=== PATIENT | male | born 1960 | race Caucasian/White ===

== ENCOUNTER 2020-05-05 13:40 | Outpatient (REF) | payer BC, SELFPAY ==
[2020-05-05 16:41] LABS: MANUAL DIFF FLAG NO
[2020-05-05 16:44] LABS: Basophils Absolute Auto 0.1 X10*3/uL (0.0-0.2); Basophils Percent Auto 0.9 % (0-2); Eosinophils Absolute Auto 0.5 X10*3/uL (0.0-0.4); Eosinophils Percent Auto 5.2 % (0-4); Hemoglobin 14.4 g/dl (14.0-18.0); Imm Gran Abs Auto 0.04 X10*3/uL (0.00-0.03); Imm Gran Pct Auto 0.4 % (0.0-0.4); Lymphocytes Percent Auto 22.7 % (20-40); Mean Corpuscular HGB Conc 33.5 g/dl (31.0-36.0); Mean Corpuscular Hemoglobin 30.1 pg (27.0-33.0); Mean Corpuscular Volume 89.8 fL (80-98); Mean Platelet Volume 9.9 fL (9.4-12.4); Monocytes Percent Auto 10.7 % (2-11); Neutrophils Absolute Auto 5.4 X10*3/uL (2.0-8.3); Neutrophils Percent Auto 60.1 % (45-73); Platelet Count 414 X10*3/uL (160-400); Red Blood Count 4.79 X10*6/uL (4.60-5.80); Red Cell Distribution Width 12.4 % (11.0-16.0)
[2020-05-05 16:49] LABS: Prothrombin Time 12.1 SEC (10.8-13.0)
[2020-05-05 16:51] LABS: Partial Thromboplastin Time 35.7 SEC (24.1-38.0)
[2020-05-05 17:04] LABS: Alanine Aminotransferase 30 U/L (0-40); Albumin Level 4.8 g/dL (3.5-5.0); Alkaline Phosphatase 46 U/L (39-117); Anion Gap 15 (12-20); Aspartate Amino Transferase 43 U/L (5-37); Bilirubin Total 0.8 mg/dL (0.0-1.0); Blood Urea Nitrogen 13 mg/dL (9-16); Carbon Dioxide 30 mmol/L (22-29); Chloride 102 mmol/L (96-108); Estimated Glomerular Filt Rate > 60; Glucose Random 66 mg/dL (60-115); Potassium 3.5 mmol/L (3.3-5.1); Sodium 143 mmol/L (135-145); Total Protein 7.7 g/dL (6.5-8.0)
== END 2020-05-05 13:41 | disposition home or self-care (01) ==
LOC: HO.HMGCLDS 13:40
PROVIDERS: PCP Nurse Practitioner Family; Visit Provider Nurse Practitioner Family
DX: Z01.818 Encounter for other preprocedural examination (principal)
CPT/HCPCS: 36415; 80053; 85025; 85610; 85730

== ENCOUNTER 2020-06-22 13:18 | Outpatient (REF) | payer BC, SELFPAY ==
--- NOTE | ~2020-06-22 | XR_ITS ---
EXAMINATION: XR RIBS, RIGHT CLINICAL INFORMATION: Trauma, pain right chest. COMPARISON: Chest radiographs 06/19/2018, 06/26/2016 TECHNIQUE: Frontal view chest and 3 views right ribs are obtained for a total of 4 views. FINDINGS: There is a transverse fracture right distal 11th rib with mild inferior displacement distal fragment on one of the rib films. There is no bony destructive process. The remainder of the ribs appear intact. The lungs show no pneumothorax or pleural reaction or effusion. There is mild elevation left diaphragm with oval density left base, possibly subsegmental atelectasis. The heart is normal in size and the hilar and mediastinal contours are unremarkable. XR/XR ribs RT min 3V w CXR1V IMPRESSION: 1. Fracture distal right 11th rib. No pneumothorax or effusion. 2. Density left lung base with mild elevation diaphragm, likely subsegmental atelectasis. Recommend follow-up chest in 4-8 weeks to confirm resolution.
== END 2020-06-22 13:19 | disposition home or self-care (01) ==
LOC: HO.HMGCX 13:18
PROVIDERS: PCP Nurse Practitioner Family; Visit Provider Nurse Practitioner Family
DX: S29.9XXA Unspecified injury of thorax, initial encounter (principal); X58.XXXA Exposure to other specified factors, initial encounter; Y93.9 Activity, unspecified; Y92.9 Unspecified place or not applicable; Y99.9 Unspecified external cause status
CPT/HCPCS: 71101

== ENCOUNTER 2021-03-18 11:42 | Outpatient (REF) | payer BC, SELFPAY ==
[2021-03-18 14:45] LABS: Alanine Aminotransferase 16 U/L (0-40); Albumin Level 4.4 g/dL (3.5-5.0); Alkaline Phosphatase 42 U/L (39-117); Anion Gap 13 (12-20); Aspartate Amino Transferase 17 U/L (5-37); Bilirubin Total 0.7 mg/dL (0.0-1.0); Blood Urea Nitrogen 15 mg/dL (9-16); Carbon Dioxide 29 mmol/L (22-29); Chloride 104 mmol/L (96-108); Cholesterol 187 mg/dL; Estimated Glomerular Filt Rate > 60; Glucose Fasting 109 mg/dL (60-99); HDL Cholesterol 53 mg/dL; LDL Cholesterol Calculated 111 mg/dl; Potassium 3.9 mmol/L (3.3-5.1); Sodium 142 mmol/L (135-145); Total Protein 7.2 g/dL (6.5-8.0); Triglycerides 117 mg/dL
[2021-03-18 14:50] LABS: Calcium 10.3 mg/dL (8.4-10.2)
[2021-03-18 15:02] LABS: Prostate Specific Antigen Scr 0.82 ng/mL (<0.05-4.0); TSH reflex Free T4 1.18 uIU/mL (0.32-4.0)
== END 2021-03-18 11:43 | disposition home or self-care (01) ==
LOC: HO.HMGCLDS 11:42
PROVIDERS: PCP Nurse Practitioner Family; Visit Provider Nurse Practitioner Family
DX: Z12.5 Encounter for screening for malignant neoplasm of prostate (principal); I10 Essential (primary) hypertension
CPT/HCPCS: 36415; 80053; 80061; 84153; 84443

== ENCOUNTER 2021-03-21 10:27 | Outpatient (REF) | payer BC, SELFPAY ==
[2021-03-21 11:25] LABS: Appearance Urine CLEAR; Color Urine YELLOW; Glucose Urine UA NEG (NEG); Leukocyte Esterase Urine NEG (NEG); Nitrite Urine NEG (NEG); PH 6.5 (5.0-8.0); Urine Blood NEG (NEG); Urine Ketones NEG (NEG); Urine Protein NEG (NEG-TRACE)
== END 2021-03-21 10:28 | disposition home or self-care (01) ==
LOC: HO.HMGCLNP 10:27
PROVIDERS: Visit Provider Nurse Practitioner Family
DX: I10 Essential (primary) hypertension (principal)
CPT/HCPCS: 81003

== ENCOUNTER → 2021-06-27 11:19 | Outpatient (BNVA) | payer BC, SELFPAY | PROVIDERS: PCP Nurse Practitioner Family; Visit Provider Anesthesiology | DX: Z13.89 Encounter for screening for other disorder (principal) ==

== ENCOUNTER → 2021-08-10 13:33 | Outpatient (RCR) | payer BC, SELFPAY | END | disposition home or self-care (01) | LOC: HO.PTCHIC 01-23 08:58 | PROVIDERS: PCP Nurse Practitioner Family; Visit Provider Hospitalist | DX: M54.16 Radiculopathy, lumbar region (principal) ==

== ENCOUNTER 2021-08-17 10:23 | Outpatient (REF) | payer BC, SELFPAY ==
--- NOTE | ~2021-08-17 | XR_ITS ---
EXAMINATION: XR HIP, RIGHT CLINICAL INFORMATION: Pain COMPARISON: None TECHNIQUE: Two views of the right hip. FINDINGS: Bones and soft tissues are normal. No fracture. Alignment is anatomic. Hip joint space is maintained. XR/XR hip RT min 2V IMPRESSION: Normal right hip radiographs.
--- NOTE | ~2021-08-17 | XR_ITS ---
EXAMINATION: XR lumbar spine 2-3V CLINICAL INFORMATION: Reason for Exam M54.16 - Radiculopathy, lumbar region COMPARISON: None TECHNIQUE: 3 views of the lumbar spine XR/XR lumbar spine 2-3V FINDINGS/IMPRESSION: * Advanced degenerative disc disease at L4-L5 with loss of disc space height and facet arthropathy. * Loss of the usual lumbar lordosis which may be due to positioning or muscle spasm. * Vertebral body heights are maintained without evidence of acute fracture.
[2021-08-17 12:13] LABS: Anion Gap 13 (12-20); Carbon Dioxide 25 mmol/L (22-29); Chloride 106 mmol/L (96-108); Sodium 140 mmol/L (135-145)
[2021-08-18 13:14] LABS: Calcium (PTHI) 9.7 mg/dL (8.6-10.3); PTHI 37 pg/mL (16-77)
[2021-08-19 17:41] LABS: Calcium, Ionized 5.3 mg/dL (4.8-5.6)
== END 2021-08-17 10:24 | disposition home or self-care (01) ==
LOC: HO.HMGCX 10:23
PROVIDERS: PCP Nurse Practitioner Family; Visit Provider Nurse Practitioner Family
DX: M54.16 Radiculopathy, lumbar region (principal); M25.551 Pain in right hip; E83.52 Hypercalcemia
CPT/HCPCS: 36415; 72100; 73502; 80051; 82330; 83970

== ENCOUNTER 2021-09-12 09:46 | Outpatient (REF) | payer BC, SELFPAY ==
--- NOTE | ~2021-09-12 | MR_ITS ---
MR LUMBAR SPINE WITHOUT IV CONTRAST CLINICAL INFORMATION: Low back pain. COMPARISON: Lumbar spine radiographs 08/17/2021. TECHNIQUE: MRI of the lumbar spine was obtained using routine sequences without contrast. FINDINGS: 5 nonrib-bearing lumbar-type vertebral bodies. Vertebral body heights are maintained. Moderate to severe disc volume loss at L4-L5 and mild to moderate disc volume loss at L3-L4. Disc desiccation at L3-L4, L4-L5, and L5-S1. Modic type I and Modic type II endplate signal changes at L4-L5. No additional bone marrow edema. Conus terminates at the L1 level. No significant extraspinal soft tissue findings. L1-L2: Disc contour is normal. No central canal stenosis and no foraminal stenosis. L2-L3: Diffuse annular disc bulge and moderate bilateral facet arthropathy and ligamentum flavum thickening. No central canal stenosis. Mild foraminal encroachment bilaterally. L3-L4: Diffuse annular disc bulge and severe bilateral facet arthropathy and ligamentum flavum thickening. Epidural lipomatosis. Findings in concert result in moderate to severe thecal sac effacement and a left lateral disc protrusion and advanced facet arthropathy result in severe left foraminal stenosis with compression of the exiting left L3 nerve root. L4-L5: Diffuse annular disc bulges in part disc osteophyte with a superimposed right paracentral disc protrusion that compresses the traversing right L5 nerve root within the right subarticular zone and moderate bilateral facet arthropathy. Prominent epidural fat. Moderate thecal sac effacement. Disc osteophyte and facet arthropathy result in mild to moderate bilateral foraminal encroachment. L5-S1: Diffuse annular disc bulges in part disc osteophyte and severe bilateral facet arthropathy. Findings in concert result in severe right and moderate to severe left foraminal stenosis with compression of the exiting right greater than left L5 nerve roots. MR/MR lumbar spine wo con IMPRESSION: - At L3-L4, multifactorial degenerative changes and epidural lipomatosis result in moderate to severe thecal sac effacement and a left lateral disc protrusion and advanced facet arthropathy result in severe left foraminal stenosis with compression of the exiting left L3 nerve root. - At L4-L5, a right paracentral disc protrusion compresses the traversing right L5 nerve root within the right subarticular zone. The disc protrusion and epidural lipomatosis result in moderate thecal sac effacement at L4-L5. Mild to moderate bilateral foraminal stenosis at this level. - At L5-S1, multifactorial degenerative changes result in severe right and moderate to severe left foraminal stenosis with compression of the exiting right greater than left L5 nerve roots.
== END 2021-09-12 09:47 | disposition home or self-care (01) ==
LOC: HO.MRI 09:46
PROVIDERS: Visit Provider Nurse Practitioner Family
DX: M54.16 Radiculopathy, lumbar region (principal); M54.50 Low back pain, unspecified; R93.89 Abnormal findings on diagnostic imaging of other specified body structures
CPT/HCPCS: 72148

== ENCOUNTER 2022-02-03 17:15 | Outpatient (REF) | payer OTHER, SELFPAY ==
[2022-02-03 17:58] LABS: Influenza A PCR NEGATIVE (Negative); Influenza B PCR NEGATIVE (Negative); Resp Syncy Virus RNA Qual PCR NEGATIVE (Negative); SARS COV2 PCR INHOUSE NEGATIVE (Negative)
== END 2022-02-03 17:16 | disposition home or self-care (01) ==
LOC: HO.LNP 17:15
DX: Z20.822 Contact with and (suspected) exposure to COVID-19 (principal); R53.83 Other fatigue
CPT/HCPCS: 0241U

== ENCOUNTER 2022-02-24 10:28 | Outpatient (REF) | payer OTHER, SELFPAY ==
[2022-02-24 14:09] LABS: Binax Now Covid-19 Ag Negative (Negative)
[2022-02-24 14:10] LABS: Binax Internal Control QC Valid
== END 2022-02-24 10:29 | disposition home or self-care (01) ==
LOC: HO.HMGCLDS 10:28
PROVIDERS: PCP Nurse Practitioner Family
DX: Z20.822 Contact with and (suspected) exposure to COVID-19 (principal); R19.7 Diarrhea, unspecified
CPT/HCPCS: 87811

== ENCOUNTER 2022-03-23 11:57 | Outpatient (REF) | payer OTHER, SELFPAY ==
[2022-03-23 14:09] LABS: MANUAL DIFF FLAG NO
[2022-03-23 14:31] LABS: Basophils Absolute Auto 0.1 X10*3/uL (0.0-0.2); Basophils Percent Auto 0.6 % (0-2); Eosinophils Absolute Auto 0.3 X10*3/uL (0.0-0.4); Eosinophils Percent Auto 2.8 % (0-4); Hematocrit 41.8 % (42.0-52.0); Hemoglobin 13.8 g/dl (14.0-18.0); Imm Gran Abs Auto 0.07 X10*3/uL (0.00-0.03); Imm Gran Pct Auto 0.8 % (0.0-0.4); Lymphocytes Absolute Auto 2.5 X10*3/uL (1.2-4.9); Lymphocytes Percent Auto 27.1 % (20-40); Mean Corpuscular Hemoglobin 29.9 pg (27.0-33.0); Mean Corpuscular Volume 90.5 fL (80.0-98.0); Mean Platelet Volume 9.7 fL (9.4-12.4); Monocytes Absolute Auto 0.9 X10*3/uL (0.1-1.2); Monocytes Percent Auto 9.2 % (2-11); Neutrophils Absolute Auto 5.5 x10*3/uL (2.0-8.3); Neutrophils Percent Auto 59.5 % (45-73); Platelet Count 408 X10*3/uL (160-400); Red Blood Count 4.62 X10*6/uL (4.60-5.80); White Blood Count 9.3 X10*3/uL (4.8-10.8)
[2022-03-23 14:52] LABS: Alanine Aminotransferase 16 U/L (0-40); Albumin Level 4.4 g/dL (3.5-5.0); Alkaline Phosphatase 43 U/L (39-117); Anion Gap 14 (12-20); Aspartate Amino Transferase 17 U/L (5-37); Bilirubin Total 0.5 mg/dL (0.0-1.0); Blood Urea Nitrogen 9 mg/dL (9-16); Carbon Dioxide 24 mmol/L (22-29); Chloride 108 mmol/L (96-108); Cholesterol 146 mg/dL; Estimated Glomerular Filt Rate > 60; Glucose Fasting 99 mg/dL (60-99); HDL Cholesterol 50 mg/dL; LDL Cholesterol Calculated 71 mg/dl; Potassium 4.2 mmol/L (3.3-5.1); Prostate Specific Antigen Scr 0.94 ng/mL (<0.05-4.0); Sodium 142 mmol/L (135-145); TSH reflex Free T4 0.69 uIU/mL (0.32-4.0); Total Protein 6.6 g/dL (6.5-8.0); Triglycerides 128 mg/dL
== END 2022-03-23 11:58 | disposition home or self-care (01) ==
LOC: HO.HMGCLDS 11:57
PROVIDERS: PCP Nurse Practitioner Family; Visit Provider Nurse Practitioner Family
DX: Z00.00 Encounter for general adult medical examination without abnormal findings (principal); Z12.5 Encounter for screening for malignant neoplasm of prostate
CPT/HCPCS: 36415; 80053; 80061; 84153; 84443; 85025

== ENCOUNTER 2022-03-24 10:57 | Outpatient (REF) | payer OTHER, SELFPAY ==
--- NOTE | ~2022-03-24 | MR_ITS ---
EXAMINATION: MR LUMBAR SPINE WITHOUT AND WITH CONTRAST CLINICAL INFORMATION: Intervertebral disc disorder is with radiculopathy. COMPARISON: Lumbar spine MRI September 12, 2021. TECHNIQUE: MRI of the lumbar spine was obtained using routine sequences without and with intravenous contrast. A total of 8.5 mL Gadavist was intravenously administered. FINDINGS: The vertebral bodies maintain normal heights and alignment. There is advanced disc height loss at L4-L5 with mild endplate edema. The distal spinal cord appears normal. The conus medullaris terminates normally at the L1-L2 level. There is no abnormal enhancement along the cauda equina nerve roots. The extraspinal soft tissues are within normal limits. SPINAL LEVELS: L1-L2: No posterior disc abnormality. No spinal canal or neural foraminal stenosis. L2-L3: Mild disc bulging without narrowing the spinal canal or neural foramina. L3-L4: Disc bulging, facet arthropathy, ligamentum flavum infolding, and epidural lipomatosis resulting in progressive now severe spinal canal stenosis with compression of the thecal sac. Left foraminal protrusion results in compression of the exiting left L3 nerve root, unchanged from prior. No right-sided neural foraminal stenosis. L4-L5: Right hemilaminectomy changes. Enhancement is seen within the right subarticular zone compatible with granulation tissue resulting in narrowing of the right subarticular zone and contacting the traversing right L5 nerve root. No definite recurrent disc herniation is seen. Disc bulging with facet arthropathy without significant narrowing of the spinal canal. Unchanged bilateral neural foraminal stenosis without foraminal nerve root compression. Osteophytic ridging contacts the exiting extraforaminal L4 nerve root segments bilaterally without change. L5-S1: Disc bulging with moderate facet arthropathy. No spinal canal stenosis. Unchanged severe right and moderate to severe left neural foraminal stenosis with compression of the exiting right more than left L5 nerve roots without change. MR/MR lumbar spine wo/w con IMPRESSION: 1. At L3-L4 there is progressive now severe spinal canal stenosis with compression of the thecal sac and compression of the exiting left L3 nerve root. 2. At L4-L5 there are postoperative findings related to right hemilaminectomy. No definite recurrent disc herniation is seen. 3. At L5-S1 there is unchanged severe right and moderate to severe left neural foraminal stenosis with compression of the exiting right more than left L5 nerve roots.
[2022-03-24 14:16] LABS: Appearance Urine Clear; Color Urine Yellow; Glucose Urine UA Negative (Negative); Leukocyte Esterase Urine Negative (Negative); Nitrite Urine Negative (Negative); Urine Blood Negative (Negative); Urine Ketones Negative (Negative); Urine Protein Negative (Neg-Trace)
== END 2022-03-24 10:58 | disposition home or self-care (01) ==
LOC: HO.MRI 10:57
PROVIDERS: PCP Nurse Practitioner Family; Visit Provider Nurse Practitioner Family
DX: Z00.00 Encounter for general adult medical examination without abnormal findings (principal); M51.16 Intervertebral disc disorders with radiculopathy, lumbar region
CPT/HCPCS: 72158; 81003; A9585

== ENCOUNTER 2022-05-04 15:21 | Outpatient (REF) | payer OTHER, SELFPAY ==
[2022-05-04 16:29] LABS: MANUAL DIFF FLAG NO
[2022-05-04 16:34] LABS: Basophils Absolute Auto 0.1 X10*3/uL (0.0-0.2); Basophils Percent Auto 0.8 % (0-2); Eosinophils Absolute Auto 0.4 X10*3/uL (0.0-0.4); Eosinophils Percent Auto 3.7 % (0-4); Hematocrit 41.8 % (42.0-52.0); Imm Gran Abs Auto 0.07 X10*3/uL (0.00-0.03); Imm Gran Pct Auto 0.7 % (0.0-0.4); Lymphocytes Absolute Auto 2.7 X10*3/uL (1.2-4.9); Lymphocytes Percent Auto 25.9 % (20-40); Mean Corpuscular HGB Conc 33.5 g/dl (31.0-36.0); Mean Corpuscular Volume 89.5 fL (80.0-98.0); Mean Platelet Volume 9.7 fL (9.4-12.4); Monocytes Absolute Auto 1.1 X10*3/uL (0.1-1.2); Monocytes Percent Auto 10.7 % (2-11); Neutrophils Absolute Auto 6.1 x10*3/uL (2.0-8.3); Neutrophils Percent Auto 58.2 % (45-73); Platelet Count 373 X10*3/uL (160-400); Red Blood Count 4.67 X10*6/uL (4.60-5.80); White Blood Count 10.5 X10*3/uL (4.8-10.8)
[2022-05-04 16:39] LABS: INTERNATIONAL NORM RATIO 1.1 (0.9-1.1); Prothrombin Time 12.3 SEC (10.0-13.1)
[2022-05-04 16:42] LABS: Partial Thromboplastin Time 33.8 SEC (26.0-36.4)
[2022-05-04 16:53] LABS: Alanine Aminotransferase 13 U/L (0-40); Albumin Level 4.4 g/dL (3.5-5.0); Alkaline Phosphatase 45 U/L (39-117); Anion Gap 11 (12-20); Aspartate Amino Transferase 19 U/L (5-37); Bilirubin Total 0.5 mg/dL (0.0-1.0); Blood Urea Nitrogen 10 mg/dL (9-16); Calcium 9.5 mg/dL (8.4-10.2); Carbon Dioxide 26 mmol/L (22-29); Chloride 107 mmol/L (96-108); Estimated Glomerular Filt Rate > 60; Glucose Random 96 mg/dL (60-115); Iron 140 mcg/dL (45-160); Percent Iron Saturation 32 % (15-50); Potassium 4.4 mmol/L (3.3-5.1); Sodium 140 mmol/L (135-145); Total Iron Binding Capacity 435 mcg/dL (228-428); Total Protein 6.6 g/dL (6.5-8.0); Unsaturated Iron Binding 295 ug/dL
[2022-05-04 17:21] LABS: Ferritin 238 ng/mL (20-250); Folate 16.5 ng/mL (> or = 4.0); Vitamin B12 557 pg/mL (200-900)
== END 2022-05-04 15:22 | disposition home or self-care (01) ==
LOC: HO.HMGCLDS 15:21
PROVIDERS: PCP Nurse Practitioner Family; Visit Provider Nurse Practitioner Family
DX: Z01.818 Encounter for other preprocedural examination (principal); D64.9 Anemia, unspecified
CPT/HCPCS: 36415; 80053; 82607; 82728; 82746; 83540; 84443; 85025; 85610; 85730

== ENCOUNTER 2022-12-07 13:11 | Outpatient (AMB) | payer OTHER, SELFPAY ==
[2022-12-07 13:18] VITALS: BP 118/74; PULSE 86; O2SAT 97; BMI 25.9
--- NOTE | 2022-12-07 13:18 | MHC.PC.OV ---
Vital Signs 12/07/22 13:18 Height 5 ft 11 in Weight 185 lb 8 oz BMI 25.9 BP 118/74 Blood Pressure Location Lt brachial Position Sitting Pulse 86 Pulse Source Pulse Oximeter Pulse Oximetry (%) 97 Oxygen Delivery Method Room Air Intake Visit Reasons: Update back surgery Allergies Penicillins [PENICILLINS] Allergy (Intermediate, Verified 12/07/22 13:43) RASH-CHILDHOOD ALLERGY penicillin V Allergy (Unknown, Verified 12/07/22 13:43) rash-childhood, ? rash Medication List - Last Reconciled 12/07/22 by King Zuniga, [facility]- amlodipine 10 mg PO DAILY atorvastatin 40 mg PO DAILY cyclobenzaprine 10 mg PO BEDTIME PRN esomeprazole magnesium (Nexium) 40 mg PO DAILY fenofibric acid (choline) 135 mg PO DAILY 90 days ibuprofen 800 mg PO Q8H PRN 30 days lisinopril 40 mg PO DAILY metoprolol succinate ER 100 mg PO DAILY prednisone 50 mg PO DAILY 7 days Tobacco use date assessed: 12/07/22 Dental Screening Dental Screen Date: 12/07/22 Did you have a dental visit in the last 12 months?: Yes Did you have a dental problem in the last 6 months where you did not have access to dental care?: No Was dental information given to patient?: Patient has dentist HPI Update back surgery HPI Details Pt c/o ongoing lower transverse back pain with radicular symptoms to his bilat posterior hips and laterally, radicular symptoms also down posterior, medial, lateral, and anterior thighs. Pt's most recent MRI in March of 2022 showed at L3-L4 there is progressive now severe spinal canal stenosis with compression of the thecal sac and compression of the exiting left L3 nerve root. At L4-L5 there are postoperative findings related to right hemilaminectomy. No definite recurrent disc herniation is seen. At L5-S1 there is unchanged severe right and moderate to severe left neural foraminal stenosis with compression of the exiting right more than left L5 nerve roots. Pt is following up with neurosurgery, hx of right L4-5 discectomy on 10/25/21, and bilateral L3-4, L4-5, and L5-S1 hemilaminectomies and bilateral foraminotomies on 05/16. He has a follow up with neurosurgery at the end of this month. He is interested in a spinal stimulator. Will order repeat MRI. Will also send prednisone and ibuprofen 800mg, pt knows not to take these together. Denies any signs of cauda equina. [facility] Medical History Diarrhea Fatigue Cervical spinal stenosis Surgical History (Updated 12/07/22 @ 13:50 by KIANNA Arguello) History of hemilaminectomy S/P lumbar discectomy History of total right knee replacement History of inguinal hernia repair Family History Father Hyperlipidemia Mother No problems noted. Maternal Grandmother Diabetes mellitus Maternal Grandfather No problems noted. Paternal Grandmother Brain cancer Paternal Grandfather No problems noted. Social History Housing: Apartment Patient Tobacco Use Status: Current everyday Tobacco user Cigarettes Per Day: 3 Years Smoked: 10 Packs per year/per ci.50 e-Cigarette/Vaping Use: Never Used Second Hand Smoke Exposure: No service: Yes Current occupational status: employed Cognitive needs: No Hearing needs: No Vision needs: No Questionnaire Thrive Questionnaire Date Thrive assessed: 03/24/21 KAMALJIT-7 AMB Questionnaire KAMALJIT-7 Date KAMALJIT - 7 assessed: 03/24/21 Source: Developed by Drs. Joseph Perdomo, Lisseth Lara, Mike Bowden and colleagues, with an educational radha from [employer]. Review of Systems Const Reports as per HPI Physical exam (Primary Care) Vital Signs: Last Vital Signs Pulse 86 12/07/22 13:18 BP 118/74 12/07/22 13:18 Pulse Ox 97 12/07/22 13:18 Oxygen Delivery Method Room Air 12/07/22 13:18 BMI result Body Mass Index 25.9 Tobacco/Smoking Status: Tobacco use Status Tobacco use date assessed 12/07/22 12/07/22 13:24 Patient Tobacco Use Status Current everyday Tobacco 12/07/22 13:24 e-Cigarette/Vaping Use Never Used 12/07/22 13:24 Thrive Assessment: Date of Thrive Assessment Date Thrive assessed 03/24/21 12/07/22 13:24 Const General: cooperative Orientation/consciousness: patient oriented x3 Resp Auscultation: clear to auscultation bilaterally Cardio Rate: regular rate Rhythm: regular rhythm Heart sounds: S1 normal heart sound present, S2 normal heart sound present and no murmurs Back/Spine/Pelvis Other: intense lower transverse back pain with pt in supine position with bilat knee to chest and straight leg raises, able to heel and toe walk with severe discomfort and weakness to BLE. + patellar reflexes Neuro General: patient oriented x3 Psych Appearance: grossly normal Mental Status: mental status grossly normal Speech and movement: Normal speech and movement present Affect: normal affect Attitude: cooperative Thought process: Normal thought process present Thought content: Normal thought content present Insight: Good insight present (Psych) Judgement: Good judgement present (Psych) Assessment and Plan Assessment & Plan (1) Lumbar disc herniation with radiculopathy: Code(s): M51.16 - Intervertebral disc disorders with radiculopathy, lumbar region Plan: MRI ordered, prednisone and ibuprofen sent (2) Nerve root compression: Code(s): G54.9 - Nerve root and plexus disorder, unspecified Plan: MRI ordered, prednisone and ibuprofen sent Plan The patient agreed to the use of a nuclear medical tech for this encounter. Scribed for KIANNA Nicolas by Sharon Camp nuclear medical tech, on 12/07/2022 at 13:30 EST. Orders: Orders MR lumbar spine wo/w con Today G54.9 - Nerve root and plexus disorder, unspecified, M51.16 - Intervertebral disc disorders with radiculopathy, lumbar region Medications: New prednisone 50 mg PO DAILY 7 days 7 tabs 1RF Refilled ibuprofen 800 mg PO Q8H 30 days PRN 90 tabs 0RF pain Coding Level of Care Code Est Pt Level 3 (77548) Diagnoses Lumbar disc herniation with radiculopathy M51.16 Nerve root compression G54.9
== END 2022-12-07 16:44 | disposition home or self-care (01) ==
PROVIDERS: PCP Nurse Practitioner Family; Visit Provider Nurse Practitioner Family
DX: M51.16 Intervertebral disc disorders with radiculopathy, lumbar region (principal)
CPT/HCPCS: 99213

== ENCOUNTER 2023-01-31 13:43 | Outpatient (REF) | payer OTHER, SELFPAY ==
--- NOTE | ~2023-01-31 | MR_ITS ---
EXAMINATION: MR LUMBAR SPINE WITHOUT AND WITH CONTRAST CLINICAL INFORMATION: Intervertebral disc disorder with radiculopathy, lumbar region COMPARISON: MRI lumbar spine on 03/24/2022. TECHNIQUE: MRI of the lumbar spine was obtained using routine sequences with and without contrast. Intravenous contrast: Magnevist 8 mL FINDINGS: Slight straightening of the normal lumbar lordosis. Mild retrolisthesis at L5-S1. No abnormal bone marrow signal or enhancement. The vertebral body heights are preserved. Multilevel disc desiccation with severe disc height loss at L4-L5 with associated Modic type II endplate changes. The visualized spinal cord is normal in caliber. No abnormal cord signal. No abnormal intramedullary enhancement. The conus medullaris terminates at L1. T12-L1: No significant spinal canal or neural foraminal narrowing. L1-L2: No significant spinal canal or neural foraminal narrowing. L2-L3: Small disc bulge. No significant spinal canal or neural foraminal narrowing. L3-L4: Diffuse disc bulge, ligamentum flavum hypertrophy, and bilateral facet arthrosis with small left facet joint effusion. Severe spinal canal stenosis, progressed from prior. Moderate to severe left and mild right neural foraminal narrowing with the disc abutting the left exiting L3 nerve roots, unchanged. L4-L5: Sequelae of bilateral hemilaminectomies with patency of the spinal canal. Patchy enhancement within the right subarticular region compatible with granulation tissue/scarring, near completely resolved. Diffuse disc bulge with superimposed annular fissure. Bilateral facet arthrosis. Moderate right and mild left neural foraminal narrowing, slightly improved on the right. L5-S1: Diffuse disc bulge with superimposed annular fissure. Bilateral facet arthrosis. Significant spinal canal stenosis. Severe right and moderate left neural foraminal narrowing with mass effect on the right exiting L5 nerve roots, unchanged. The paravertebral soft tissues are otherwise unremarkable. MR/MR lumbar spine wo/w con IMPRESSION: -Sequelae of prior bilateral hemilaminectomies at L4-L5 with decompressed spinal canal. -Redemonstration of multilevel lumbar spondylosis as detailed above, most notable at L3-L4 where there has been interval progression of severe spinal canal stenosis. Associated moderate to severe left and mild right neural foraminal narrowing is unchanged. Additionally, severe right and moderate left neural foraminal narrowing at L5-S1 with mass effect on the right exiting L5 nerve roots is unchanged.
== END 2023-01-31 13:44 | disposition home or self-care (01) ==
LOC: HO.MRI 13:43
PROVIDERS: PCP Nurse Practitioner Family; Visit Provider Nurse Practitioner Family
DX: M51.16 Intervertebral disc disorders with radiculopathy, lumbar region (principal)
CPT/HCPCS: 72158

== ENCOUNTER 2023-03-28 09:44 | Outpatient (REF) | payer OTHER, SELFPAY ==
[2023-03-28 13:29] LABS: Appearance Urine Clear; Color Urine Yellow; Glucose Urine UA Negative (Negative); Leukocyte Esterase Urine Negative (Negative); Nitrite Urine Negative (Negative); Urine Blood Negative (Negative); Urine Ketones Negative (Negative); Urine Protein Negative (Neg-Trace)
[2023-03-28 13:38] LABS: MANUAL DIFF FLAG NO
[2023-03-28 13:53] LABS: Basophils Absolute Auto 0.1 X10*3/uL (0.0-0.2); Basophils Percent Auto 0.9 % (0-2); Eosinophils Absolute Auto 0.5 X10*3/uL (0.0-0.4); Eosinophils Percent Auto 6.6 % (0-4); Hematocrit 41.7 % (42.0-52.0); Hemoglobin 13.7 g/dl (14.0-18.0); Imm Gran Abs Auto 0.03 X10*3/uL (0.00-0.03); Imm Gran Pct Auto 0.4 % (0.0-0.4); Lymphocytes Absolute Auto 2.4 X10*3/uL (1.2-4.9); Lymphocytes Percent Auto 29.9 % (20-40); Mean Corpuscular HGB Conc 32.9 g/dl (31.0-36.0); Mean Corpuscular Volume 88.3 fL (80.0-98.0); Mean Platelet Volume 10.5 fL (9.4-12.4); Monocytes Absolute Auto 0.6 X10*3/uL (0.1-1.2); Monocytes Percent Auto 7.7 % (2-11); Neutrophils Absolute Auto 4.3 x10*3/uL (2.0-8.3); Neutrophils Percent Auto 54.5 % (45-73); Platelet Count 458 X10*3/uL (160-400); Red Blood Count 4.72 X10*6/uL (4.60-5.80); Red Cell Distribution Width 12.3 % (11.0-16.0); White Blood Count 7.9 X10*3/uL (4.8-10.8)
[2023-03-28 17:05] LABS: Alanine Aminotransferase 13 U/L (0-40); Albumin Level 4.2 g/dL (3.5-5.0); Alkaline Phosphatase 45 U/L (39-117); Anion Gap 11 (12-20); Aspartate Amino Transferase 17 U/L (5-37); Bilirubin Total 0.6 mg/dL (0.0-1.0); Blood Urea Nitrogen 16 mg/dL (9-16); Calcium 9.7 mg/dL (8.4-10.2); Carbon Dioxide 25 mmol/L (22-29); Chloride 109 mmol/L (96-108); Cholesterol 128 mg/dL (<200); Estimated Glomerular Filt Rate > 60; Glucose Fasting 113 mg/dL (60-99); HDL Cholesterol 45 mg/dL (>40); LDL Cholesterol Calculated 72 mg/dL (<100); Potassium 3.7 mmol/L (3.3-5.1); Sodium 141 mmol/L (135-145); Total Protein 6.9 g/dL (6.5-8.0); Triglycerides 56 mg/dL (<150)
[2023-03-28 17:06] LABS: TSH reflex Free T4 1.26 uIU/mL (0.32-4.0)
== END 2023-03-28 09:45 | disposition home or self-care (01) ==
LOC: HO.HMGCLDS 09:44
PROVIDERS: PCP Nurse Practitioner Family; Visit Provider Nurse Practitioner Family
DX: Z00.00 Encounter for general adult medical examination without abnormal findings (principal); Z13.220 Encounter for screening for lipoid disorders; Z13.29 Encounter for screening for other suspected endocrine disorder; Z12.5 Encounter for screening for malignant neoplasm of prostate
CPT/HCPCS: 36415; 80053; 80061; 81003; 84153; 84443; 85025

== ENCOUNTER 2023-04-03 09:55 | Outpatient (AMB) | payer OTHER, SELFPAY ==
--- NOTE | 2023-04-03 10:11 | MHC.PC.OV ---
Vital Signs 04/03/23 10:14 Height 5 ft 11 in Weight 180 lb BMI 25.1 BP 126/80 Blood Pressure Location Lt brachial Position Sitting Pulse 81 Pulse Source Pulse Oximeter Pulse Oximetry (%) 97 Oxygen Delivery Method Room Air Intake Visit Reasons: Annual Physical Intake Note: Pt is here today for his PE; Pt states never had a colonoscopy Allergies Penicillins [PENICILLINS] Allergy (Intermediate, Verified 12/07/22 13:43) RASH-CHILDHOOD ALLERGY penicillin V Allergy (Unknown, Verified 12/07/22 13:43) rash-childhood, ? rash Tobacco use date assessed: 04/03/23 Dental Screening Dental Screen Date: 04/03/23 Did you have a dental visit in the last 12 months?: Yes Did you have a dental problem in the last 6 months where you did not have access to dental care?: Yes Was dental information given to patient?: Patient has dentist HPI Annual Physical HPI Details pt is here for a PE. Refuses colonoscopy, but will due a cologuard. PSA, is up to date. Pt denies any weak stream, incomplete bladder emptying, or weak stream, nocturia. pt refuses FARIDEH. anemia: will recheck cbc with other labs in 2 months. He denies any visual blood in stool, will order a FIT test as well. elevated FBS, educated pt on watching carbs and sugars. will repeat HPI Comments History of Present Illness Details pt is here for a PE. PLTs: trend up, then will go down for a period. [facility] Medical History Diarrhea Fatigue Cervical spinal stenosis Surgical History History of hemilaminectomy S/P lumbar discectomy History of total right knee replacement History of inguinal hernia repair Family History Father Hyperlipidemia Mother No problems noted. Maternal Grandmother Diabetes mellitus Maternal Grandfather No problems noted. Paternal Grandmother Brain cancer Paternal Grandfather No problems noted. Social History Housing: Apartment Patient Tobacco Use Status: Former Tobacco user Cigarettes Per Day: 3 Years Smoked: 10 e-Cigarette/Vaping Use: Never Used Second Hand Smoke Exposure: No service: Yes Current occupational status: employed Cognitive needs: No Hearing needs: No Vision needs: No Questionnaire PHQ-9 Over the last 2 weeks, how often have you been bothered by any of the following problems? 1. Little interest or pleasure in doing things: nearly every day 2. Feeling down, depressed, or hopeless: not at all 3. Trouble falling or staying asleep, or sleeping too much: not at all 4. Feeling tired or having little energy: not at all 5. Poor appetite or overeating: not at all 6. Feeling bad about yourself - or that you are a failure or have let yourself or your family down: not at all 7. Trouble concentrating on things, such as reading the newspaper or watching television: not at all 8. Moving or speaking so slowly that other people could have noticed. Or the opposite - being so fidgety or restless that you have been moving around a lot more than usual: not at all 9. Thoughts that you would be better off or of hurting yourself in some way: not at all Total score: 3 Depression Screening Interpretation: Negative Depression Screening Done: Yes [id number] - PHQ-9 Billing: Yes Source: Developed by Drs. Joseph Perdomo, Lisseth Lara, Mike Bowden and colleagues, with an educational radha from [employer]. Thrive Questionnaire Date Thrive assessed: 04/03/23 I am a: Patient What is your living situation today?: I have a steady place to live Within the past 12 months, did the food you bought not last and you didn't have the money to get more?: Never true Within the past 12 months, did you worry whether your food would run out before you got money to buy more?: Never true Do you have trouble paying for medicines?: No Do you have trouble getting transportation to medical appointments?: No Do you have trouble paying your heating and electricity bill?: No Do you have trouble taking care of your child, family member or friend?: No Do you have trouble with day-to-day activities such as bathing, preparing meals, shopping, managing finances, etc.?: No Are you currently unemployed and looking for a job?: No Are you interested in more education?: No Currently or been in a relationship where the following occur: no concerns reported AUDIT C Alcohol Use Questionnaire (AUDIT-C) 1. How often do you have a drink containing alcohol?: Monthly or less 2. How many drinks containing alcohol do you have on a typical day when you are drinking?: 1 or 2 3. How often do you have six or more drinks on one occasion?: Never Total Score: 1 KAMALJIT-7 AMB Questionnaire KAMALJIT-7 Date KAMALJIT - 7 assessed: 04/03/23 Feeling nervous, anxious, or on edge: 0 = Not at all Not being able to stop or control worryin = Not at all Worrying too much about different things: 0 = Not at all Trouble relaxin = Not at all Being so restless that it is hard to sit still: 0 = Not at all Becoming easily annoyed or irritable: 0 = Not at all Feeling afraid as if something awful might happen: 0 = Not at all Total KAMALJIT-7 score (0-4 normal; 5-9 mild; 10-14 moderate; 15-21 severe): 0 Source: Developed by Drs. Joseph Perdomo, Lisseth Lara, Mike Bowden and colleagues, with an educational radha from [employer]. Review of Systems Const Denies chills and Denies fever(s) Eyes Denies blurry vision ENT Denies vertigo, Denies dizziness and Denies sore throat Card Denies chest pain at rest, Denies chest pain with activity, Denies diaphoresis, Denies dyspnea and Denies dyspnea on exertion Resp Denies cough, Denies dyspnea, Denies dyspnea on exertion and Denies wheezing GI Denies abdominal pain, Denies melena, Denies hematochezia, Denies constipation, Denies diarrhea and Denies loose stools Denies hematuria Musc Denies numbness and Denies tingling Skin/Breast Denies lesions Neuro Denies vertigo, Denies dizziness, Denies numbness and Denies tingling Psych Denies anxiety, Denies depression, Denies homicidal ideation, Denies suicidal ideation and Denies other (substance abuse) Aller/Immun Denies wheezing Physical exam (Primary Care) Vital Signs: Last Vital Signs Pulse 81 04/03/23 10:14 BP 126/80 04/03/23 10:14 Pulse Ox 97 04/03/23 10:14 Oxygen Delivery Method Room Air 04/03/23 10:14 BMI result Body Mass Index 25.1 Tobacco/Smoking Status: Tobacco use Status Tobacco use date assessed 04/03/23 04/03/23 10:16 Patient Tobacco Use Status Former Tobacco user 04/03/23 10:19 e-Cigarette/Vaping Use Never Used 04/03/23 10:13 PHQ-9: PHQ-9 Score PHQ-9: Total score 3 04/03/23 10:13 Depression Screening Interpretation: Negative Thrive Assessment: Date of Thrive Assessment Date Thrive assessed 04/03/23 04/03/23 10:13 Currently or been in a relationship where the following occur: no concerns reported Const General: cooperative Nutritional Appearance: well nourished Orientation/consciousness: patient oriented x3 HENMT Head: Yes normal to inspection, Yes normocephalic and Yes atraumatic Ears: TM normal on the right and TM normal on the left Eyes General: appearance normal, both eyes and all related structures Alignment and Position: alignment normal and position normal Neck Neck: Yes normal visual inspection and Yes no lymphadenopathy Resp Effort & Inspection: normal respiratory effort Auscultation: clear to auscultation bilaterally Cardio Rate: regular rate Rhythm: regular rhythm Heart sounds: S1 normal heart sound present, S2 normal heart sound present and no murmurs GI Palpation (GI): Soft to palpation and nontender Auscultation: normal bowel sounds Male General Exam: Yes normal external exam Penis: normal penis Scrotum: scrotum normal, testes descended bilaterally and no inguinal hernias Testes: no testicular mass Skin Rashes: no rashes Neuro General: patient oriented x3, moves all extremities, no focal motor deficits and deep tendon reflexes 2+ bilaterally Romberg Test: Negative Extrem Right lower extremity: no edema Left lower extremity: no edema Psych Affect: normal affect Attitude: cooperative Thought process: Normal thought process present Assessment and Plan Assessment & Plan (1) Low hemoglobin: Code(s): D64.9 - Anemia, unspecified Plan: labs and FIT test (2) Elevated fasting blood sugar: Code(s): R73.01 - Impaired fasting glucose Plan: educated on diet (3) Encounter for routine adult physical exam with abnormal findings: Code(s): Z00.01 - Encounter for general adult medical examination with abnormal findings Orders: Orders Ferritin Today D64.9 - Anemia, unspecified IRON PROFILE Today D64.9 - Anemia, unspecified FITS Today D64.9 - Anemia, unspecified Complete Blood Count Auto Diff Today D64.9 - Anemia, unspecified Comprehensive Rose. Panel Fast Today R73.01 - Impaired fasting glucose Referrals Cologuard Test Z12.11 - Encounter for screening for malignant neoplasm of colon, Z12.12 - Encounter for screening for malignant neoplasm of rectum Coding Level of Care Code Est Pt Prev Care 40-64y(08885) Diagnoses Low hemoglobin D64.9 Elevated fasting blood sugar R73.01 Encounter for routine adult physical exam with abnormal findings Z00.01
[2023-04-03 10:14] VITALS: BP 126/80; PULSE 81; O2SAT 97; BMI 25.1
== END 2023-04-03 12:31 | disposition home or self-care (01) ==
PROVIDERS: Visit Provider Nurse Practitioner Family
DX: Z00.00 Encounter for general adult medical examination without abnormal findings (principal); D64.9 Anemia, unspecified; R73.01 Impaired fasting glucose
CPT/HCPCS: 99396

== ENCOUNTER 2023-06-05 10:03 | Outpatient (REF) | payer OTHER, SELFPAY ==
[2023-06-05 13:23] LABS: MANUAL DIFF FLAG NO
[2023-06-05 13:32] LABS: Basophils Absolute Auto 0.1 X10*3/uL (0.0-0.2); Basophils Percent Auto 0.8 % (0-2); Eosinophils Absolute Auto 0.5 X10*3/uL (0.0-0.4); Eosinophils Percent Auto 7.3 % (0-4); Hematocrit 37.6 % (42.0-52.0); Hemoglobin 12.8 g/dl (14.0-18.0); Imm Gran Abs Auto 0.02 X10*3/uL (0.00-0.03); Imm Gran Pct Auto 0.3 % (0.0-0.4); Lymphocytes Absolute Auto 1.9 X10*3/uL (1.2-4.9); Lymphocytes Percent Auto 30.8 % (20-40); Mean Corpuscular Hemoglobin 28.5 pg (27.0-33.0); Mean Corpuscular Volume 83.7 fL (80.0-98.0); Mean Platelet Volume 10.1 fL (9.4-12.4); Monocytes Absolute Auto 0.6 X10*3/uL (0.1-1.2); Monocytes Percent Auto 9.3 % (2-11); Neutrophils Absolute Auto 3.2 x10*3/uL (2.0-8.3); Neutrophils Percent Auto 51.5 % (45-73); Platelet Count 397 X10*3/uL (160-400); Red Blood Count 4.49 X10*6/uL (4.60-5.80); Red Cell Distribution Width 12.5 % (11.0-16.0); White Blood Count 6.3 X10*3/uL (4.8-10.8)
[2023-06-05 14:18] LABS: FIT1 NEGATIVE (NEGATIVE)
[2023-06-05 14:19] LABS: FIT Int Ctl YES
[2023-06-05 14:39] LABS: Alanine Aminotransferase 14 U/L (0-40); Albumin Level 4.2 g/dL (3.5-5.0); Alkaline Phosphatase 46 U/L (39-117); Anion Gap 9 (12-20); Aspartate Amino Transferase 15 U/L (5-37); Bilirubin Total 0.5 mg/dL (0.0-1.0); Blood Urea Nitrogen 10 mg/dL (9-16); Calcium 9.5 mg/dL (8.4-10.2); Carbon Dioxide 26 mmol/L (22-29); Chloride 106 mmol/L (96-108); Estimated Glomerular Filt Rate > 60; Glucose Fasting 86 mg/dL (60-99); Iron 137 mcg/dL (45-160); Percent Iron Saturation 38 % (15-50); Potassium 3.7 mmol/L (3.3-5.1); Sodium 137 mmol/L (135-145); Total Iron Binding Capacity 356 mcg/dL (228-428); Total Protein 6.6 g/dL (6.5-8.0); Unsaturated Iron Binding 219 ug/dL
[2023-06-05 15:00] LABS: Ferritin 189 ng/mL (20-250)
== END 2023-06-05 10:04 | disposition home or self-care (01) ==
LOC: HO.HMGCLDS 10:03
PROVIDERS: PCP Nurse Practitioner Family; Visit Provider Nurse Practitioner Family
DX: D64.9 Anemia, unspecified (principal); R73.01 Impaired fasting glucose
CPT/HCPCS: 36415; 80053; 82274; 82728; 83540; 85025

== ENCOUNTER 2023-07-03 13:10 | Outpatient (REF) | payer OTHER, SELFPAY ==
[2023-07-03 16:20] LABS: MANUAL DIFF FLAG NO
[2023-07-03 16:32] LABS: Basophils Absolute Auto 0.1 X10*3/uL (0.0-0.2); Basophils Percent Auto 0.7 % (0-2); Eosinophils Absolute Auto 0.3 X10*3/uL (0.0-0.4); Eosinophils Percent Auto 4.3 % (0-4); Hemoglobin 13.4 g/dl (14.0-18.0); Imm Gran Abs Auto 0.03 X10*3/uL (0.00-0.03); Imm Gran Pct Auto 0.4 % (0.0-0.4); Lymphocytes Absolute Auto 2.4 X10*3/uL (1.2-4.9); Lymphocytes Percent Auto 31.7 % (20-40); Mean Corpuscular HGB Conc 33.5 g/dl (31.0-36.0); Mean Corpuscular Hemoglobin 28.6 pg (27.0-33.0); Mean Corpuscular Volume 85.5 fL (80.0-98.0); Monocytes Absolute Auto 0.7 X10*3/uL (0.1-1.2); Monocytes Percent Auto 8.5 % (2-11); Neutrophils Absolute Auto 4.2 x10*3/uL (2.0-8.3); Neutrophils Percent Auto 54.4 % (45-73); Platelet Count 415 X10*3/uL (160-400); Red Blood Count 4.68 X10*6/uL (4.60-5.80); Red Cell Distribution Width 12.7 % (11.0-16.0); White Blood Count 7.7 X10*3/uL (4.8-10.8)
[2023-07-03 17:09] LABS: Folate 11.9 ng/mL (> or = 4.0); Vitamin B12 524 pg/mL (200-900)
[2023-07-06 08:49] LABS: Hematocrit 39.7 % (38.5-50.0); Hemoglobin 13.3 g/dL (13.2-17.1); MCH 28.9 pg (27.0-33.0); MCV 86.1 fL (80.0-100.0); RBC 4.61 Million/uL (4.20-5.80); RDW 12.9 % (11.0-15.0)
== END 2023-07-03 13:11 | disposition home or self-care (01) ==
LOC: HO.HMGCLDS 13:10
PROVIDERS: PCP Nurse Practitioner Family; Visit Provider Nurse Practitioner Family
DX: D64.9 Anemia, unspecified (principal)
CPT/HCPCS: 36415; 82607; 82746; 83020; 85014; 85018; 85025; 85041

== ENCOUNTER 2023-08-10 13:43 | Outpatient (REF) | payer OTHER, SELFPAY ==
--- NOTE | ~2023-08-10 | CT_ITS ---
EXAMINATION: CT ABDOMEN WITHOUT CONTRAST CLINICAL INFORMATION: Right upper quadrant abdominal pain. COMPARISON: None available. TECHNIQUE: Contiguous axial thin section helical images of the abdomen were performed without contrast. The data set was reformatted in the coronal and sagittal planes and reviewed on an independent workstation. This CT examination was performed using dose optimization techniques as appropriate, variously including the following: *Automated exposure control *Adjustment of mA and/or kV according to patient size (this includes techniques or standardized protocols for targeted exams where dose is matched to indication/reason for exam; i.e. extremities or head) *Use of iterative reconstruction technique DLP: 257 mGy-cm FINDINGS: LUNG BASES: Mild diffuse airway wall thickening. LIVER, GALLBLADDER, BILIARY TREE: Noncontrast attenuation the liver is within normal limits. No discrete mass. No biliary ductal dilatation. Contracted gallbladder without visible cholelithiasis. PANCREAS: No discrete pancreatic mass. No pancreatic ductal dilatation. SPLEEN: Normal size spleen. ADRENAL GLANDS AND KIDNEYS: No adrenal mass. BOWEL LOOPS: The small and large bowel are normal in caliber. Mild left-sided diverticulosis. No evidence of acute diverticulitis. LYMPH NODES: No lymphadenopathy. VASCULAR: Unremarkable. BONES: Moderate degenerative disc disease in the lower lumbar spine. CT/CT abdomen wo IV con IMPRESSION: Contracted gallbladder is nonspecific but could represent chronic cholecystitis in the appropriate clinical context. Consider nuclear medicine biliary scan with CCK. Otherwise no explanation for right upper quadrant abdominal pain. Mild left colonic diverticulosis without evidence of diverticulitis. Fleischner guidelines were followed.
== END 2023-08-10 13:44 | disposition home or self-care (01) ==
LOC: HO.CT 13:43
PROVIDERS: PCP Nurse Practitioner Family; Visit Provider Nurse Practitioner Family
DX: R10.9 Unspecified abdominal pain (principal)
CPT/HCPCS: 74150

== ENCOUNTER → 2023-10-19 10:47 | Outpatient (REF) | payer OTHER, SELFPAY ==
--- NOTE | ~2023-10-19 | NM_ITS ---
EXAMINATION: BILIARY TRACT IMAGING STUDY WITH CCK CLINICAL INFORMATION: Right upper quadrant abdominal pain. COMPARISON: CT of the abdomen without intravenous contrast done on 08/10/2023.. TECHNIQUE: Serial gamma scintillation camera images were obtained over the abdomen for a total observation period of 60 minutes following the intravenous administration of 5.0 mCi Tc-99m mebrofenin. FINDINGS: There is good concentration of activity in the liver by 5 minutes post injection. Biliary activity is visualized by 15 minutes. The gallbladder is well visualized by 25 minutes. Small bowel is well visualized by 25 minutes. At 60 minutes post radiopharmaceutical injection, a 30-minute infusion of 1.5 micrograms Sincalide was then begun and an additional 40 minutes of images were obtained. There is rapid emptying of the gallbladder. By the end of the study there is good clearance of activity from the liver and visualization of diffuse small bowel activity. The calculated gallbladder ejection fraction is 96% (Normal range of gallbladder ejection fraction is between 35-80%; GBEF <35% is considered biliary hypokinesia and >80% is considered biliary hyperkinesia; Ref. #1-Clinical Journal of Gastroenterology (2020) 14:1308?1317; Ref.#2-[email or web address]). NM/NM hepatobiliary w pharm IMPRESSION: Visualization of the gallbladder is evidence of a patent cystic duct and strong evidence against the diagnosis of acute cholecystitis. The common bile duct is patent. Gallbladder emptying and ejection fraction are abnormal. Liver function appears normal.
== END ==
LOC: HO.NUCMED 10:47
PROVIDERS: PCP Nurse Practitioner Family; Visit Provider Nurse Practitioner Family
DX: R10.11 Right upper quadrant pain (principal)
CPT/HCPCS: 78227; A9537; J2805

== ENCOUNTER 2024-04-01 10:41 | Outpatient (REF) | payer OTHER, SELFPAY ==
--- OUTSIDE RECORDS SUMMARY | 2024-04-01 11:00 | XMS_ITS | Continuity of Care Document ---
Author Name [facility] Organization [facility] Care Team Providers Care Weapons Engineer Name Role Phone [facility] Unavailable Unavailable Immunizations Combined list of available immunizations from the Department of Defense and Veterans Affairs facilities. Immunization Series Date Given Administered By Site Reaction Lot Number CVX Code Drug Slip Filler Status Comments Source influenza virus vaccine, split virus (incl. purified surface antigen)-reti red CODE 1 2007 [id number] 15 Data[employer] ([facility]) complet ed influenza virus vaccine, split virus (incl. purified surface antigen)- retired CODE [facility] typhoid Vi capsular polysaccharid e vaccine 1 2007 [id number] Sanofi Pasteur ([facility]) complet ed typhoid Vi capsular polysacch aride vaccine [facility] influenza virus vaccine, split virus (incl. purified surface antigen)-reti red CODE 1 2006 [id number] 15 Zhongjia MRO ([facility]) complet ed influenza virus vaccine, split virus (incl. purified surface antigen)- retired CODE DoD influenza virus vaccine, split virus (incl. purified surface antigen)-reti red CODE 1 2005 [id number] Other (OTH) complet ed influenza virus vaccine, split virus (incl. purified surface antigen)- retired CODE [facility] typhoid vaccine, parenteral, other than acetone-kille d, dried 1 2005 [id number] Sanofi Pasteur ([facility]) complet ed typhoid vaccine, parentera l, other than acetone-k illed, dried DoD influenza virus vaccine, split virus (incl. purified surface antigen)-reti red CODE 1 2004 [id number] 15 Sanofi Pasteur ([facility]) complet ed influenza virus vaccine, split virus (incl. purified surface antigen)- retired CODE [facility] influenza virus vaccine, live, attenuated, for intranasal use 0 2004 [id number] [employer] (MED) complet ed influenza virus vaccine, live, attenuate d, for intranasa l use DoD typhoid vaccine, parenteral, other than acetone-kille d, dried 0 2003 [id number] 41 [facility] ([facility]) complet ed typhoid vaccine, parentera l, other than acetone-k illed, dried DoD influenza virus vaccine, whole virus 0 2002 [id number] 16 [facility] ([facility]) complet ed influenza virus vaccine, whole virus DoD poliovirus vaccine, inactivated 0 2002 [id number] 10 [facility] ([facility]) complet ed polioviru s vaccine, inactivat ed DoD tuberculin skin test; purified protein derivative solution, intradermal 1 2002 Unknown, Provider 96 () complet ed tuberculi n skin test; purified protein derivativ e solution, intraderm al DoD influenza virus vaccine, whole virus 0 2001 [id number] 16 [facility] complet ed influenza virus vaccine, whole virus DoD tetanus and diphtheria toxoids, adsorbed, preservative free, for adult use (2 Lf of tetanus toxoid and 2 Lf of diphtheria toxoid) 0 2001 [id number] 09 [facility] ([facility]) complet ed tetanus and diphtheri a toxoids, adsorbed, preservat girish free, for adult use (2 Lf of tetanus toxoid and 2 Lf of diphtheri a toxoid) DoD influenza virus vaccine, whole virus 0 2001 [id number] 16 [facility] ([facility]) complet ed influenza virus vaccine, whole virus DoD tuberculin skin test; purified protein derivative solution, intradermal 1 2001 Unknown, Provider [id number] [facility] ([facility]) complet ed tuberculi n skin test; purified protein derivativ e solution, intraderm al DoD influenza virus vaccine, whole virus 0 2000 [id number] 16 Sukh (CON) complet ed influenza virus vaccine, whole virus DoD tuberculin skin test; purified protein derivative solution, intradermal 1 1999 Unknown, Provider [id number] Sukh (CON) complet ed tuberculi n skin test; purified protein derivativ e solution, intraderm al DoD influenza virus vaccine, whole virus 0 [id number] 16 HerberCandice ([facility]) complet ed influenza virus vaccine, whole virus DoD measles, mumps and rubella virus vaccine 0 1997 [id number] 03 George (AB) complet ed measles, mumps and rubella virus vaccine DoD influenza virus vaccine, whole virus 0 [id number] 16 Sondrat (CON) complet ed influenza virus vaccine, whole virus DoD hepatitis A vaccine, adult dosage 2 1997 [id number] 52 SmithKline (SKB) complet ed hepatitis A vaccine, adult dosage DoD influenza virus vaccine, whole virus 0 [id number] 16 Wyeth-Ayerst (WAL) complet ed influenza virus vaccine, whole virus DoD typhoid vaccine, live, oral 0 1997 [id number] 25 [employer]-Ayerst (WAL) complet ed typhoid vaccine, live, oral DoD meningococcal polysaccharid e vaccine (MPSV4) 0 [id number] 32 Sukh (CON) complet ed meningoco ccal polysacch aride vaccine (MPSV4) DoD hepatitis A vaccine, adult dosage 1 1997 [id number] 52 Merck (MSD) complet ed hepatitis A vaccine, adult dosage DoD Social History Combined list of available smoking, tobacco, and other social history from Department of Defense and Veterans Affairs facilities. Social History Type Response Date Comment Sour e This section is an empty social history section. DoD
[2024-04-01 13:35] LABS: MANUAL DIFF FLAG NO
[2024-04-01 13:38] LABS: Appearance Urine Clear; Color Urine Yellow; Glucose Urine UA Negative (Negative); Leukocyte Esterase Urine Negative (Negative); Nitrite Urine Negative (Negative); Specific Gravity - Urine 1.015 (1.005-1.025); Urine Blood Negative (Negative); Urine Ketones Negative (Negative); Urine Protein Negative (Neg-Trace)
[2024-04-01 13:42] LABS: Basophils Absolute Auto 0.1 X10*3/uL (0.0-0.2); Basophils Percent Auto 0.9 % (0-2); Eosinophils Absolute Auto 0.5 X10*3/uL (0.0-0.4); Eosinophils Percent Auto 6.6 % (0-4); Hematocrit 38.4 % (42.0-52.0); Hemoglobin 13.2 g/dl (14.0-18.0); Imm Gran Abs Auto 0.11 X10*3/uL (0.00-0.03); Imm Gran Pct Auto 1.4 % (0.0-0.4); Lymphocytes Absolute Auto 2.4 X10*3/uL (1.2-4.9); Lymphocytes Percent Auto 30.3 % (20-40); Mean Corpuscular HGB Conc 34.4 g/dl (31.0-36.0); Mean Corpuscular Hemoglobin 30.7 pg (27.0-33.0); Mean Corpuscular Volume 89.3 fL (80.0-98.0); Mean Platelet Volume 9.4 fL (9.4-12.4); Monocytes Absolute Auto 0.7 X10*3/uL (0.1-1.2); Monocytes Percent Auto 8.9 % (2-11); Neutrophils Absolute Auto 4.1 x10*3/uL (2.0-8.3); Neutrophils Percent Auto 51.9 % (45-73); Platelet Count 373 X10*3/uL (160-400); Red Cell Distribution Width 12.1 % (11.0-16.0); White Blood Count 7.8 X10*3/uL (4.8-10.8)
[2024-04-01 14:14] LABS: Alanine Aminotransferase 16 U/L (0-40); Albumin Level 4.3 g/dL (3.5-5.0); Alkaline Phosphatase 35 U/L (39-117); Anion Gap 10 (12-20); Aspartate Amino Transferase 22 U/L (5-37); Bilirubin Total 0.6 mg/dL (0.0-1.0); Blood Urea Nitrogen 11 mg/dL (9-16); Calcium 9.2 mg/dL (8.4-10.2); Carbon Dioxide 24 mmol/L (22-29); Chloride 107 mmol/L (96-108); Cholesterol 151 mg/dL (<200); Estimated Glomerular Filt Rate > 60; Glucose Fasting 91 mg/dL (60-99); HDL Cholesterol 60 mg/dL (>40); LDL Cholesterol Calculated 73 mg/dL (<100); Potassium 3.8 mmol/L (3.3-5.1); Sodium 137 mmol/L (135-145); TSH reflex Free T4 0.75 uIU/mL (0.32-4.0); Total Protein 6.7 g/dL (6.5-8.0); Triglycerides 93 mg/dL (<150)
== END 2024-04-01 10:42 | disposition home or self-care (01) ==
LOC: HO.HMGCLDS 10:41
PROVIDERS: PCP Nurse Practitioner Family; Visit Provider Nurse Practitioner Family
DX: I10 Essential (primary) hypertension (principal); Z12.5 Encounter for screening for malignant neoplasm of prostate
CPT/HCPCS: 36415; 80053; 80061; 81003; 84153; 84443; 85025

== ENCOUNTER 2024-04-03 09:47 | Outpatient (REF) | payer OTHER, SELFPAY ==
--- OUTSIDE RECORDS SUMMARY | 2024-04-03 09:50 | XMS_ITS | Continuity of Care Document ---
Author Name [facility] Organization [facility] Care Team Providers Care Grooming Salon Manager Name Role Phone [facility] Unavailable Unavailable Immunizations Combined list of available immunizations from the Department of Defense and Veterans Affairs facilities. Immunization Series Date Given Administered By Site Reaction Lot Number CVX Code Drug Software Sales Manager Status Comments Source influenza virus vaccine, split virus (incl. purified surface antigen)-reti red CODE 1 2007 [id number] 15 Aniwaysine ([facility]) complet ed influenza virus vaccine, split virus (incl. purified surface antigen)- retired CODE [facility] typhoid Vi capsular polysaccharid e vaccine 1 2007 [id number] Sanofi Pasteur ([facility]) complet ed typhoid Vi capsular polysacch aride vaccine [facility] influenza virus vaccine, split virus (incl. purified surface antigen)-reti red CODE 1 2006 [id number] 15 [employer] ([facility]) complet ed influenza virus vaccine, split virus (incl. purified surface antigen)- retired CODE DoD influenza virus vaccine, split virus (incl. purified surface antigen)-reti red CODE 1 2005 [id number] 15 Other (OTH) complet ed influenza virus vaccine, split virus (incl. purified surface antigen)- retired CODE [facility] typhoid vaccine, parenteral, other than acetone-kille d, dried 1 2005 [id number] 41 Sanofi Pasteur ([facility]) complet ed typhoid vaccine, parentera l, other than acetone-k illed, dried DoD influenza virus vaccine, split virus (incl. purified surface antigen)-reti red CODE 1 2004 [id number] 15 Sanofi Pasteur ([facility]) complet ed influenza virus vaccine, split virus (incl. purified surface antigen)- retired CODE [facility] influenza virus vaccine, live, attenuated, for intranasal use 0 2004 [id number] 111 [employer] (MED) complet ed influenza virus vaccine, live, attenuate d, for intranasa l use DoD typhoid vaccine, parenteral, other than acetone-kille d, dried 0 2003 [id number] 41 [facility] ([facility]) complet ed typhoid vaccine, parentera l, other than acetone-k illed, dried DoD influenza virus vaccine, whole virus 0 2002 [id number] 16 [facility] ([facility]) complet ed influenza virus vaccine, whole virus DoD poliovirus vaccine, inactivated 0 2002 [id number] 10 [facility] ([facility]) complet ed polioviru s vaccine, inactivat ed DoD tuberculin skin test; purified protein derivative solution, intradermal 1 2002 Unknown, Provider 96 () complet ed tuberculi n skin test; purified protein derivativ e solution, intraderm al DoD influenza virus vaccine, whole virus 0 2001 [id number] 16 [facility]) complet ed influenza virus vaccine, whole virus DoD tetanus and diphtheria toxoids, adsorbed, preservative free, for adult use (2 Lf of tetanus toxoid and 2 Lf of diphtheria toxoid) 0 2001 [id number] 09 [facility] ([facility]) complet ed tetanus and diphtheri a toxoids, adsorbed, preservat girish free, for adult use (2 Lf of tetanus toxoid and 2 Lf of diphtheri a toxoid) DoD influenza virus vaccine, whole virus 0 2001 [id number] 16 [facility] ([facility]) complet ed influenza virus vaccine, whole virus DoD tuberculin skin test; purified protein derivative solution, intradermal 1 2001 Unknown, Provider [id number] [facility] ([facility]) complet ed tuberculi n skin test; purified protein derivativ e solution, intraderm al DoD influenza virus vaccine, whole virus 0 2000 [id number] 16 Sukh (CON) complet ed influenza virus vaccine, whole virus DoD tuberculin skin test; purified protein derivative solution, intradermal 1 1999 Unknown, Provider [id number] Sukh (CON) complet ed tuberculi n skin test; purified protein derivativ e solution, intraderm al DoD influenza virus vaccine, whole virus 0 [id number] 16 HerberCandice ([facility]) complet ed influenza virus vaccine, whole virus DoD measles, mumps and rubella virus vaccine 0 1997 [id number] George (AB) complet ed measles, mumps and rubella virus vaccine DoD influenza virus vaccine, whole virus 0 [id number] 16 Sondrat (CON) complet ed influenza virus vaccine, whole virus DoD hepatitis A vaccine, adult dosage 2 1997 [id number] 52 [employer]line (SKB) complet ed hepatitis A vaccine, adult dosage DoD influenza virus vaccine, whole virus 0 [id number] 16 [employer] ([facility]AL) complet ed influenza virus vaccine, whole virus DoD typhoid vaccine, live, oral 0 1997 [id number] 25 [employer]yer[employer] ([facility]) complet ed typhoid vaccine, live, oral DoD meningococcal polysaccharid e vaccine (MPSV4) 0 [id number] 32 Sukh (CON) complet ed meningoco ccal [...]
[2024-04-03 13:15] LABS: Immature Retic Fraction 9.3 % (2.3-13.4); Retic HGB Equivalent 35.5 pg (30.0-35.0); Reticulocyte Percent 1.4 % (0.5-1.8); Reticulocytes Absolute 0.063 X10*6/uL (0.026-0.095)
[2024-04-03 13:41] LABS: Iron 163 mcg/dL (45-160); Lactate Dehydrogenase 323 U/L (118-273); Percent Iron Saturation 38 % (15-50); Total Iron Binding Capacity 433 mcg/dL (228-428); Unsaturated Iron Binding 270 ug/dL
[2024-04-03 13:47] LABS: Ferritin 229 ng/mL (20-250)
[2024-04-03 13:55] LABS: Folate 10.5 ng/mL (> or = 4.0); Vitamin B12 468 pg/mL (200-900)
[2024-04-05 07:29] LABS: Ceruloplasmin 17 mg/dL (14-30)
[2024-04-07 02:53] LABS: Zinc 78 mcg/dL (60-130)
[2024-04-07 12:58] LABS: Prot Elec - Albumin 4.7 g/dL (3.8-4.8); Prot Elec - Alpha1 0.2 g/dL (0.2-0.3); Prot Elec - Alpha2 0.5 g/dL (0.5-0.9); Prot Elec - Beta 1 0.6 g/dL (0.4-0.6); Prot Elec - Beta 2 0.3 g/dL (0.2-0.5); Prot Elec - Gamma 0.7 g/dL (0.8-1.7)
[2024-04-09 08:48] LABS: IgA 226 mg/dL (70-320); IgG 837 mg/dL (600-1540); IgM 69 mg/dL (50-300)
== END 2024-04-03 09:48 | disposition home or self-care (01) ==
LOC: HO.HMGCLDS 09:47
PROVIDERS: PCP Nurse Practitioner Family; Visit Provider Nurse Practitioner Family
DX: R74.8 Abnormal levels of other serum enzymes (principal); D64.9 Anemia, unspecified
CPT/HCPCS: 36415; 82390; 82607; 82728; 82746; 82784; 83540; 83615; 83735; 84165; 84630; 85045; 86334

== ENCOUNTER 2024-04-16 11:02 | Outpatient (AMB) | payer OTHER, SELFPAY ==
[2024-04-16 11:04] VITALS: BP 112/70; PULSE 82; O2SAT 97; BMI 25.2
--- NOTE | 2024-04-16 11:04 | MHC.PC.OV ---
Vital Signs 04/16/24 11:04 Height 5 ft 11 in Weight 181 lb BMI 25.2 BP 112/70 Blood Pressure Location Rt brachial Position Sitting Pulse 82 Pulse Source Pulse Oximeter Pulse Oximetry (%) 97 Intake Visit Reasons: PE Intake Note: pt is here for PE Child Welfare Social Worker Required: No Accompanied by: Self / Same As Patient Allergies Penicillins [PENICILLINS] Allergy (Intermediate, Verified 04/16/24 11:04) RASH-CHILDHOOD ALLERGY penicillin V Allergy (Unknown, Verified 04/16/24 11:04) rash-childhood, ? rash Medication List - Last Reconciled 04/16/24 by King Zuniga, [facility]- amlodipine 10 mg PO DAILY atorvastatin 40 mg PO DAILY esomeprazole magnesium (Nexium) 40 mg PO DAILY fenofibric acid (choline) 135 mg PO DAILY ibuprofen 800 mg PO Q8H PRN 30 days lidocaine 5% 1 patch topical DAILY lisinopril 40 mg PO DAILY metoprolol succinate ER 100 mg PO DAILY sildenafil (Viagra) 50 mg PO DAILY PRN Tobacco use date assessed: 04/16/24 Dental Screening Dental Screen Date: 04/16/24 Did you have a dental visit in the last 12 months?: Yes Did you have a dental problem in the last 6 months where you did not have access to dental care?: No Was dental information given to patient?: Patient has dentist HPI PE HPI Details History of Present Illness The patient is a 63-year-old male presenting with chronic lower back pain with radiculopathy. The condition has persisted for some time, with a history of four neurosurgery procedures in the past. Despite previous engagements in pain management, the patient reports significant ongoing pain that extends from the lower back, progressing to the mid-back and cervical region, involving all the paraspinal muscles. Symptoms include intense lower back pain radiating throughout the regions mentioned, without signs of cauda equina syndrome. The patient previously tried gabapentin without significant relief. He has a history of comprehensive pain management but has not yet tried Lyrica (pregabalin), which is now being considered for treatment. The pain remains a constant issue affecting daily activities. NOTE: slight anemia noted, will cont to monitor. Health Maintenance - Colonoscopy is up to date. - PSA (Prostate-Specific Antigen) screening is current. - Smoking cessation discussion initiated with potential referral for a low-dose CT scan. Social History - Smokes cigarettes; quantity unspecified. Review of Systems - Musculoskeletal: Reports chronic lower back pain radiating to mid and cervical areas, involving paraspinal muscles. - Neurological: Denies any symptoms suggestive of cauda equina syndrome. Physical Exam General: Cooperative, healthy appearing, comfortable, no acute distress and well developed Orientation: Patient oriented x3 Limitations: No limitations Head: Normal to inspection Ears: Hearing grossly normal bilaterally Nose: Normal external nose present Face and sinus: Normal facial exam Eyes: Appearance normal, both eyes and all related structures Neck: Normal visual inspection and Yes full ROM Respiratory: Normal respiratory effort and able to speak in complete sentences. Clear to auscultation bilaterally Cardiovascular: Regular rate and rhythm. Normal S1 and S2 GI: Normal to inspection. Soft to palpation and nontender Skin: No rashes or lesions noted Neuro: Patient oriented x3 Extremities: Normal to inspection Results Plan - Prescribe Lyrica pregabalin) for chronic lower back pain with radiculopathy. - Maintain up-to-date screening for colon and prostate cancer. - Initiate a referral for a low-dose CT scan for lung cancer screening due to smoking history. - Discuss smoking cessation strategies. Patient was informed and verbally consented to the use of an ambient scribe for clinic note documentation during this visit. Discussion Notes During the visit, I discussed the patient's ongoing struggles with chronic lower back pain and the insufficient response to previous treatments, including gabapentin. I presented Lyrica as a potential option, explaining its mechanism and potential benefits for managing neuropathic pain. We reviewed smoking history and agreed on the necessity of a low-dose CT scan for lung cancer screening as a preventive measure. The patient consented to the suggested plan, understanding the need for continued monitoring of cancer screenings and the importance of considering smoking cessation. Patient Instructions - Start taking Lyrica as prescribed for managing back pain. - Continue with regular screenings for colon and prostate health. - Consider smoking cessation options seriously. - Attend the recommended low-dose CT scan appointment. - Return for follow-up care as scheduled or if symptoms worsen. [facility] Medical History Diarrhea Fatigue Cervical spinal stenosis Surgical History History of hemilaminectomy S/P lumbar discectomy History of total right knee replacement History of inguinal hernia repair Family History Father Hyperlipidemia Mother No problems noted. Maternal Grandmother Diabetes mellitus Maternal Grandfather No problems noted. Paternal Grandmother Brain cancer Paternal Grandfather No problems noted. Social History Housing: Apartment Patient Tobacco Use Status: Former Tobacco user Cigarettes Per Day: 3 Years Smoked: 10 e-Cigarette/Vaping Use: Never Used Second Hand Smoke Exposure: No service: Yes Current occupational status: employed Cognitive needs: No Hearing needs: No Vision needs: No Questionnaire PHQ-9 Over the last 2 weeks, how often have you been bothered by any of the following problems? 1. Little interest or pleasure in doing things: nearly every day 2. Feeling down, depressed, or hopeless: not at all 3. Trouble falling or staying asleep, or sleeping too much: not at all 4. Feeling tired or having little energy: not at all 5. Poor appetite or overeating: not at all 6. Feeling bad about yourself - or that you are a failure or have let yourself or your family down: not at all 7. Trouble concentrating on things, such as reading the newspaper or watching television: not at all 8. Moving or speaking so slowly that other people could have noticed. Or the opposite - being so fidgety or restless that you have been moving around a lot more than usual: not at all 9. Thoughts that you would be better off or of hurting yourself in some way: not at all Total score: 3 Depression Screening Interpretation: Negative Depression Screening Done: Yes 50750 - PHQ-9 Billing: Yes Source: Developed by Drs. Joseph Perdomo, Lisseth Lara, Mike Bowden and colleagues, with an educational radha from [email or web address]. Thrive Questionnaire Date Thrive assessed: 04/16/24 I am a: Patient What is your living situation today?: I have a steady place to live Within the past 12 months, did the food you bought not last and you didn't have the money to get more?: I choose not to answer this question Within the past 12 months, did you worry whether your food would run out before you got money to buy more?: I choose not to answer this question Do you have trouble paying for medicines?: I choose not to answer this question Do you have trouble getting transportation to medical appointments?: I choose not to answer this question Do you have trouble paying your heating and electricity bill?: I choose not to answer this question Do you have trouble taking care of your child, family member or friend?: I choose not to answer this question Do you have trouble with day-to-day activities such as bathing, preparing meals, shopping, managing finances, etc.?: I choose not to answer this question Are you currently unemployed and looking for a job?: I choose not to answer this question Are you interested in more education?: I choose not to answer this question Please select the resources that you would like help with: None Currently or been in a relationship where the following occur: I choose not to answer THRIVE Score: 0 AUDIT C Alcohol Use Questionnaire (AUDIT-C) 1. How often do you have a drink containing alcohol?: 2-3 times a week 2. How many drinks containing alcohol do you have on a typical day when you are drinking?: 1 or 2 3. How often do you have six or more drinks on one occasion?: Weekly Total Score: 6 Score Reviewed/Action Taken: Yes KAMALJIT-7 AMB Questionnaire KAMALJIT-7 Date KAMALJIT - 7 assessed: 04/16/24 Feeling nervous, anxious, or on edge: 0 = Not at all Not being able to stop or control worryin = Not at all Worrying too much about different things: 0 = Not at all Trouble relaxin = Not at all Being so restless that it is hard to sit still: 0 = Not at all Becoming easily annoyed or irritable: 0 = Not at all Feeling afraid as if something awful might happen: 0 = Not at all Total KAMALJIT-7 score (0-4 normal; 5-9 mild; 10-14 moderate; 15-21 severe): 0 Source: Developed by Drs. Joseph Perdomo, Lisseth Lara, Mike Bowedn and colleagues, with an educational radha from [email or web address]. KAMALJIT-7 Assessment Billing KAMALJIT-7 Assessment Tool: KAMALJIT-7 Assessment 10169 Physical exam (Primary Care) Vital Signs: Last Vital Signs Pulse 82 04/16/24 11:04 BP 112/70 04/16/24 11:04 Pulse Ox 97 04/16/24 11:04 BMI result Body Mass Index 25.2 Tobacco/Smoking Status: Tobacco use Status Tobacco use date assessed 04/16/24 04/16/24 11:05 Patient Tobacco Use Status Former Tobacco user 04/16/24 11:05 e-Cigarette/Vaping Use Never Used 04/16/24 11:05 PHQ-9: PHQ-9 Score PHQ-9: Total score 3 04/16/24 11:05 Depression Screening Interpretation: Negative Thrive Assessment: Date of Thrive Assessment Date Thrive assessed 04/16/24 04/16/24 11:05 Currently or been in a relationship where the following occur: I choose not to answer Coding Level of Care Code Est Pt Prev Care 40-64y(89236) Diagnoses Low hemoglobin D64.9 Physical exam Z00.00 Smoker F17.200 Additional Codes KAMALJIT-7 Assessment Billing - KAMALJIT-7 Assessment Tool: KAMALJIT-7 Assessment 99334 ([id number]) PHQ-9 - 95768 - PHQ-9 Billing: Yes ([id number]) Assessment & Plan Assessment & Plan (1) Low hemoglobin: Code(s): D64.9 - Anemia, unspecified Category: Medical (2) Physical exam: Code(s): Z00.00 - Encounter for general adult medical examination without abnormal findings Category: Medical (3) Smoker: Code(s): F17.200 - Nicotine dependence, unspecified, uncomplicated Category: Social Hx Plan . Orders: Orders Complete Blood Count Auto Diff 2 Months D64.9 - Anemia, unspecified Lactate Dehydrogenase 2 Months D64.9 - Anemia, unspecified Referrals Lung Cancer Screening Referral F17.200 - Nicotine dependence, unspecified, uncomplicated Medications: New pregabalin (Lyrica) 25 mg PO BID 30 days 60 caps 1RF
--- OUTSIDE RECORDS SUMMARY | 2024-04-16 13:02 | XMS_ITS | Continuity of Care Document ---
Author Name [facility] Organization [facility] Care Team Providers Care Apiarist Name Role Phone [facility] Unavailable Unavailable Immunizations Combined list of available immunizations from the Department of Defense and Veterans Affairs facilities. Immunization Series Date Given Administered By Site Reaction Lot Number CVX Code Drug Senior Bioinformatics Scientist Status Comments Source influenza virus vaccine, split virus (incl. purified surface antigen)-reti red CODE 1 2007 [id number] 15 Elimiine ([facility]) complet ed influenza virus vaccine, split virus (incl. purified surface antigen)- retired CODE [facility] typhoid Vi capsular polysaccharid e vaccine 1 2007 [id number] Sanofi Pasteur ([facility]) complet ed typhoid Vi capsular polysacch aride vaccine [facility] influenza virus vaccine, split virus (incl. purified surface antigen)-reti red CODE 1 2006 [id number] 15 [employer] ([facility]) complet ed influenza virus vaccine, split virus (incl. purified surface antigen)- retired CODE DoD influenza virus vaccine, split virus (incl. purified surface antigen)-reti red CODE 1 2005 [id number] Other (OTH) complet ed influenza virus vaccine, split virus (incl. purified surface antigen)- retired CODE [facility] typhoid vaccine, parenteral, other than acetone-kille d, dried 1 2005 [id number] Sanofi Pasteur ([facility]) complet ed typhoid vaccine, parentera l, other than acetone-k illed, dried DoD influenza virus vaccine, split virus (incl. purified surface antigen)-reti red CODE 1 2004 [id number] 15 Sanofi Pasteur ([facility]) complet ed influenza virus vaccine, split virus (incl. purified surface antigen)- retired CODE [facility] influenza virus vaccine, live, attenuated, for intranasal use 0 2004 [id number] [employer] (MED) complet ed influenza virus vaccine, live, attenuate d, for intranasa l use DoD typhoid vaccine, parenteral, other than acetone-kille d, dried 0 2003 [id number] 41 [facility] ([facility]) complet ed typhoid vaccine, parentera l, other than acetone-k illed, dried DoD influenza virus vaccine, whole virus 0 2002 [id number] 16 [facility] complet ed influenza virus vaccine, whole virus DoD poliovirus vaccine, inactivated 0 2002 [id number] 10 [facility] ([facility]) complet ed polioviru s vaccine, inactivat ed DoD tuberculin skin test; purified protein derivative solution, intradermal 1 2002 Unknown, Provider 96 () complet ed tuberculi n skin test; purified protein derivativ e solution, intraderm al DoD influenza virus vaccine, whole virus 0 2001 [id number] 16 [facility] complet ed influenza virus vaccine, whole virus DoD tetanus and diphtheria toxoids, adsorbed, preservative free, for adult use (2 Lf of tetanus toxoid and 2 Lf of diphtheria toxoid) 0 2001 [id number] 09 [facility] ([facility]) complet ed tetanus and diphtheri a toxoids, adsorbed, preservat girish free, for adult use (2 Lf of tetanus toxoid and 2 Lf of diphtheri a toxoid) DoD influenza virus vaccine, whole virus 0 2001 [id number] 16 [facility] ([facility]) complet ed influenza virus vaccine, whole virus DoD tuberculin skin test; purified protein derivative solution, intradermal 1 2001 Unknown, Provider [id number] 96 [facility] ([facility]) complet ed tuberculi n skin test; purified protein derivativ e solution, intraderm al DoD influenza virus vaccine, whole virus 0 2000 [id number] 16 Sukh (CON) complet ed influenza virus vaccine, whole virus DoD tuberculin skin test; purified protein derivative solution, intradermal 1 1999 Unknown, Provider [id number] Sukh (CON) complet ed tuberculi n skin test; purified protein derivativ e solution, intraderm al DoD influenza virus vaccine, whole virus 0 [id number] 16 [employer] ([facility]) complet ed influenza virus vaccine, whole virus DoD measles, mumps and rubella virus vaccine 0 1997 [id number] 03 George (AB) complet ed measles, mumps and rubella virus vaccine DoD influenza virus vaccine, whole virus 0 [id number] 16 Sondrat (CON) complet ed influenza virus vaccine, whole virus DoD hepatitis A vaccine, adult dosage 2 1997 [id number] 52 [employer] (SKB) complet ed hepatitis A vaccine, adult dosage DoD influenza virus vaccine, whole virus 0 [id number] 16 [employer]Ayer[employer] (WAL) complet ed influenza virus vaccine, whole virus DoD typhoid vaccine, live, oral 0 1997 [id number] 25 [employer] (WAL) complet ed typhoid vaccine, live, oral DoD meningococcal polysaccharid e vaccine (MPSV4) 0 [id number] 32 Sukh (CON) complet ed meningoco ccal [...]
== END 2024-04-16 12:15 | disposition home or self-care (01) ==
PROVIDERS: PCP Nurse Practitioner Family; Visit Provider Nurse Practitioner Family
DX: D64.9 Anemia, unspecified (principal); Z00.00 Encounter for general adult medical examination without abnormal findings; F17.200 Nicotine dependence, unspecified, uncomplicated

== ENCOUNTER → 2024-04-16 11:02 | Outpatient (BNVA) | payer OTHER, SELFPAY | PROVIDERS: PCP Nurse Practitioner Family; Visit Provider Nurse Practitioner Family | DX: Z00.00 Encounter for general adult medical examination without abnormal findings (principal); D64.9 Anemia, unspecified; F17.210 Nicotine dependence, cigarettes, uncomplicated | CPT/HCPCS: 96127 ==

== ENCOUNTER 2024-06-17 08:38 | Outpatient (REF) | payer OTHER, SELFPAY ==
[2024-06-17 10:04] LABS: MANUAL DIFF FLAG NO
[2024-06-17 10:24] LABS: Basophils Absolute Auto 0.1 X10*3/uL (0.0-0.2); Basophils Percent Auto 1.1 % (0-2); Eosinophils Absolute Auto 0.8 X10*3/uL (0.0-0.4); Eosinophils Percent Auto 8.7 % (0-4); Hematocrit 39.1 % (42.0-52.0); Hemoglobin 13.6 g/dl (14.0-18.0); Imm Gran Abs Auto 0.07 X10*3/uL (0.00-0.03); Imm Gran Pct Auto 0.8 % (0.0-0.4); Immature Retic Fraction 10.5 % (2.3-13.4); Lymphocytes Percent Auto 23.3 % (20-40); Mean Corpuscular HGB Conc 34.8 g/dl (31.0-36.0); Mean Corpuscular Volume 86.1 fL (80.0-98.0); Mean Platelet Volume 9.4 fL (9.4-12.4); Monocytes Absolute Auto 0.8 X10*3/uL (0.1-1.2); Monocytes Percent Auto 8.8 % (2-11); Neutrophils Percent Auto 57.3 % (45-73); Platelet Count 434 X10*3/uL (160-400); Red Blood Count 4.54 X10*6/uL (4.60-5.80); Red Cell Distribution Width 12.3 % (11.0-16.0); Retic HGB Equivalent 33.6 pg (30.0-35.0); Reticulocyte Percent 1.8 % (0.5-1.8); Reticulocytes Absolute 0.081 X10*6/uL (0.026-0.095); White Blood Count 8.8 X10*3/uL (4.8-10.8)
[2024-06-17 10:44] LABS: Haptoglobin 124 mg/dL (40-268)
[2024-06-17 10:52] LABS: Alanine Aminotransferase 17 U/L (0-40); Albumin Level 4.4 g/dL (3.5-5.0); Alkaline Phosphatase 41 U/L (39-117); Anion Gap 12 (12-20); Aspartate Amino Transferase 23 U/L (5-37); Bilirubin Total 0.6 mg/dL (0.0-1.0); Blood Urea Nitrogen 11 mg/dL (9-16); Calcium 9.2 mg/dL (8.4-10.2); Carbon Dioxide 25 mmol/L (22-29); Chloride 106 mmol/L (96-108); Cholesterol 144 mg/dL (<200); Estimated Glomerular Filt Rate > 60; Glucose Fasting 94 mg/dL (60-99); HDL Cholesterol 58 mg/dL (>40); LDL Cholesterol Calculated 74 mg/dL (<100); Lactate Dehydrogenase 246 U/L (118-273); Sodium 139 mmol/L (135-145); Total Protein 7.3 g/dL (6.5-8.0); Triglycerides 64 mg/dL (<150)
[2024-06-17 11:10] LABS: TSH reflex Free T4 1.04 uIU/mL (0.32-4.0)
== END 2024-06-17 08:39 | disposition home or self-care (01) ==
LOC: HO.HMGCLDS 08:38
PROVIDERS: PCP Nurse Practitioner Family; Visit Provider Nurse Practitioner Family
DX: Z13.6 Encounter for screening for cardiovascular disorders (principal); D64.9 Anemia, unspecified
CPT/HCPCS: 36415; 80053; 80061; 83010; 83615; 84443; 85025; 85045; 86880

== ENCOUNTER 2024-07-04 10:38 | Outpatient (AMB) | payer OTHER, SELFPAY ==
--- NOTE | 2024-07-04 08:03 | MHC.OFFVIS ---
Intake Visit Reasons: Current Smoker Allergies Penicillins [PENICILLINS] Allergy (Intermediate, Verified 04/16/24 11:04) RASH-CHILDHOOD ALLERGY penicillin V Allergy (Unknown, Verified 04/16/24 11:04) rash-childhood, ? rash HPI HPI Current Smoker: Details: Initial visit for this 63yo smoker with a 24PYH. Patient started smoking at age 15 for 48 years at 1/2ppd. . Denies marijuana use. Denies second hand smoke exposure. Denies exposure to chemicals or substances like asbestos. . Reports family history of lung cancer. Maternal grandmother at 50. Denies personal history of cancers. Denies chest CT in last year. . Denies recent travel outside the [place]. Denies recent respiratory illness or recent hospitalization for respiratory issues. Denies testing positive for COVID. Admits receiving COVID Vaccine. . Denies fever, chills, new/worsening cough, hemoptysis, hoarseness or dysphagia. Denies significant chest pain, significant dyspnea or unintentional weight loss. Patient Lung Cancer Screening Questionnaire reviewed with patient by provider. . Shared Decision Making Completed. Patient meets criteria. Discussed in detail with patient, the risk vs benefit of LDCT screening. Patient consents to proceed with scan. Discussed smoking cessation. [facility] Medical History (Updated 07/04/24 @ 10:40 by Nathalia Dupont PA-C) HTN (hypertension) Nicotine dependence, cigarettes, uncomplicated Diarrhea Cervical spinal stenosis Surgical History (Updated 06/09/24 @ 12:58 by Nathalia Dupont PA-C) History of lumbar discectomy History of hemilaminectomy History of total right knee replacement History of inguinal hernia repair Family History Father Hyperlipidemia Mother No problems noted. Maternal Grandmother Diabetes mellitus Maternal Grandfather No problems noted. Paternal Grandmother Brain cancer Paternal Grandfather No problems noted. Social History (Updated 07/04/24 @ 10:40 by Nathalia Dupont PA-C) Housing: Apartment Patient Tobacco Use Status: Former Tobacco user Years Smoked: (onset 15yo, 1/2ppd x 48yrs, 24pyh) e-Cigarette/Vaping Use: Never Used Second Hand Smoke Exposure: No service: Yes Current occupational status: employed Cognitive needs: No Hearing needs: No Vision needs: No Assessment & Plan Assessment & Plan (1) Nicotine dependence, cigarettes, uncomplicated: Comment: (onset 15yo, 1/2ppd x 48yrs, 24pyh) Code(s): F17.210 - Nicotine dependence, cigarettes, uncomplicated Category: Medical Plan: - SDM visit completed today in office. - Patient meets criteria for LDCT for lung cancer screening purposes and is asymptomatic. - Smoking cessation counseling offered. Patients can always call [phone]. - Will arrange for a LDCT scan of the chest for screening purposes at [facility]. - Risks, benefits, and alternatives were discussed in detail and the patient agrees to proceed. - Risks discussed include but are not limited to: radiation exposure, anxiety during testing and while awaiting results, false negatives, false positives and possibility of additional intervention such as further imaging or surgical procedures for benign disease. - Benefits are obviously detection of lung cancer at an early stage which can lead to improved outcomes. - Discussed the importance of screening program compliance with adherence to yearly LDCT scan as scheduled - or sooner interval scans for personalized screening regimen. - Discussed follow up plan. Our office will send a letter discussing results and if needed set up phone call and office visit based on CT findings. - Patient educated on results categorization and the management decisions for suspicious findings potentially found on the screening LDCT scan. Any patient with a Lung RADS score of 3 or 4 will be reviewed by a multidisciplinary team at [facility] to form a plan of action in regards to scan findings. - If further work up is warranted for a suspicious lung finding this will be followed by the Lung Cancer Screening program in conjunction with the Thoracic Surgery Department at [facility]. - A copy of the office note and LDCT will be sent to the patient's PCP - as well as documentation on any associated further plans of care. - Incidental findings on LDCT are the PCP's responsibility. These findings are indicated with an S finding on the LDCT Assessment. A note discussing the findings will be sent to the PCP who is then responsible for further management. - All questions answered.? Coding Level of Care Code Lung Cancer Screening G0296 Diagnoses Nicotine dependence, cigarettes, uncomplicated F17.210
== END 2024-07-04 10:56 | disposition home or self-care (01) ==
LOC: HO.HPS 10:39
PROVIDERS: PCP Nurse Practitioner Family; Referring Provider Nurse Practitioner Family; Visit Provider Physician Assistant Medical
DX: F17.210 Nicotine dependence, cigarettes, uncomplicated (principal)
CPT/HCPCS: G0296

== ENCOUNTER 2024-07-04 10:47 | Outpatient (REF) | payer OTHER, SELFPAY ==
--- NOTE | ~2024-07-04 | CT_ITS ---
CLINICAL HISTORY: F17.210 - Nicotine dependence, cigarettes, uncomplicated CT lung cancer screening (LDCT) Comparison: None Technique: Axial CT images of the chest using low-dose technique. Referring provider counseled the patient on shared decision-making for LDCT screening. Additional counseling was provided on smoking cessation. Effective radiation dose total: DLP 48.8 mGycm, CTDIvol 1.6 mGy. Findings: Lung: Summary of nodules including size/character/location/image# of the most suspicious nodules (highest category), degree of emphysema, other relevant pulmonary/pleural findings. Coronary artery calcifications: Minimal Limited upper abdomen: Unremarkable Other: None Impression: LungRADS 1: Negative exam. Continue annual screening with low dose Chest CT in 12 months. ##L1# Category 1: Normal; continue annual screening Category 2: Benign appearance or behavior, continue annual screening Category 3: Probably benign, [address] recommended Category 4A: Suspicious, [address] recommended; may consider PET/CT Category 4B: Suspicious, Additional diagnostics and/or tissue sampling recommended Category 4X: Suspicious, Additional diagnostics and/or tissue sampling recommended Category 0: Recalls (incomplete screen due to Incomplete coverage, Noise, Respiratory motion, Expiration, Obscured by acute abnormality) This document has been electronically signed by: Cedric Guerrero MD on 07/04/2024 18:28:16
== END 2024-07-04 10:48 | disposition home or self-care (01) ==
LOC: HO.CT 10:47
PROVIDERS: PCP Nurse Practitioner Family; Visit Provider Physician Assistant Medical
DX: Z12.2 Encounter for screening for malignant neoplasm of respiratory organs (principal); F17.210 Nicotine dependence, cigarettes, uncomplicated
CPT/HCPCS: 71271; G0296

== ENCOUNTER → 2024-07-04 10:49 | Outpatient (BNV) | payer OTHER, SELFPAY | PROVIDERS: PCP Nurse Practitioner Family; Visit Provider Radiology Diagnostic Radiology | DX: Z12.2 Encounter for screening for malignant neoplasm of respiratory organs (principal); F17.210 Nicotine dependence, cigarettes, uncomplicated | CPT/HCPCS: 71271 ==

== ENCOUNTER 2024-08-05 11:29 | Outpatient (REF) | payer OTHER, SELFPAY ==
--- OUTSIDE RECORDS SUMMARY | 2024-08-05 13:14 | XMS_ITS | Continuity of Care Document ---
Author Name [facility] Organization [facility] Care Team Providers Care Professional Programmer Analyst Name Role Phone [facility] Unavailable Unavailable Immunizations Combined list of available immunizations from the Department of Defense and Veterans Affairs facilities. Immunization Series Date Given Administered By Site Reaction Lot Number CVX Code Drug Inspector Final Assembly Mechanical Status Comments Source influenza virus vaccine, split virus (incl. purified surface antigen)-reti red CODE 1 2007 [id number] 15 [employer] ([facility]) complet ed influenza virus vaccine, split virus (incl. purified surface antigen)- retired CODE [facility] typhoid Vi capsular polysaccharid e vaccine 1 2007 [id number] Sanofi Pasteur ([facility]) complet ed typhoid Vi capsular polysacch aride vaccine [facility] influenza virus vaccine, split virus (incl. purified surface antigen)-reti red CODE 1 2006 [id number] 15 [employer] Seen on [employer] ([facility]) complet ed influenza virus vaccine, split virus (incl. purified surface antigen)- retired CODE DoD influenza virus vaccine, split virus (incl. purified surface antigen)-reti red CODE 1 2005 [id number] Other (OTH) complet ed influenza virus vaccine, split virus (incl. purified surface antigen)- retired CODE [facility] typhoid vaccine, parenteral, other than acetone-kille d, dried 1 2005 [id number] Sanofi Pasteur ([facility]) complet ed typhoid vaccine, parentera l, other than acetone-k illed, dried DoD influenza virus vaccine, split virus (incl. purified surface antigen)-reti red CODE 1 2004 [id number] 15 Sanofi Pasteur ([facility]) complet ed influenza virus vaccine, split virus (incl. purified surface antigen)- retired CODE [facility] influenza virus vaccine, live, attenuated, for intranasal use 0 2004 [id number] [employer] (MED) complet ed influenza virus vaccine, live, attenuate d, for intranasa l use DoD typhoid vaccine, parenteral, other than acetone-kille d, dried 0 2003 [id number] 41 [facility] ([facility]) complet ed typhoid vaccine, parentera l, other than acetone-k illed, dried DoD influenza virus vaccine, whole virus 0 2002 [id number] 16 [facility]) complet ed influenza virus vaccine, whole virus DoD poliovirus vaccine, inactivated 0 2002 [id number] 10 [facility] ([facility]) complet ed polioviru s vaccine, inactivat ed DoD tuberculin skin test; purified protein derivative solution, intradermal 1 2002 Unknown, Provider 96 () complet ed tuberculi n skin test; purified protein derivativ e solution, intraderm al DoD influenza virus vaccine, whole virus 0 2001 [id number] 16 [facility] complet ed influenza virus vaccine, whole virus DoD tetanus and diphtheria toxoids, adsorbed, preservative free, for adult use (2 Lf of tetanus toxoid and 2 Lf of diphtheria toxoid) 0 2001 [id number] 09 [facility] ([facility]) complet ed tetanus and diphtheri a toxoids, adsorbed, preservat girish free, for adult use (2 Lf of tetanus toxoid and 2 Lf of diphtheri a toxoid) DoD influenza virus vaccine, whole virus 0 2001 [id number] 16 [facility] ([facility]) complet ed influenza virus vaccine, whole virus DoD tuberculin skin test; purified protein derivative solution, intradermal 1 2001 Unknown, Provider [id number] 96 [facility] ([facility]) complet ed tuberculi n skin test; purified protein derivativ e solution, intraderm al DoD influenza virus vaccine, whole virus 0 2000 [id number] 16 [employer] (CON) complet ed influenza virus vaccine, whole virus DoD tuberculin skin test; purified protein derivative solution, intradermal 1 1999 Unknown, Provider [id number] [employer] (CON) complet ed tuberculi n skin test; purified protein derivativ e solution, intraderm al DoD influenza virus vaccine, whole virus 0 [id number] 16 [employer] ([facility]) complet ed influenza virus vaccine, whole virus DoD measles, mumps and rubella virus vaccine 0 1997 [id number] 03 George (AB) complet ed measles, mumps and rubella virus vaccine DoD influenza virus vaccine, whole virus 0 [id number] 16 Sondrat (CON) complet ed influenza virus vaccine, whole virus DoD hepatitis A vaccine, adult dosage 2 1997 [id number] 52 [employer] (SKB) complet ed hepatitis A vaccine, adult dosage DoD influenza virus vaccine, whole virus 0 [id number] 16 [employer] ([facility]) complet ed influenza virus vaccine, whole virus DoD typhoid vaccine, live, oral 0 1997 [id number] 25 [employer] ([facility]) complet ed typhoid vaccine, live, oral DoD meningococcal polysaccharid e vaccine (MPSV4) 0 [id number] 32 Sukh (CON) complet ed meningoco ccal [...]
[2024-08-05 13:44] LABS: MANUAL DIFF FLAG NO
[2024-08-05 13:48] LABS: Basophils Absolute Auto 0.1 X10*3/uL (0.0-0.2); Basophils Percent Auto 1.1 % (0-2); Eosinophils Absolute Auto 0.3 X10*3/uL (0.0-0.4); Hematocrit 41.1 % (42.0-52.0); Hemoglobin 13.9 g/dl (14.0-18.0); Imm Gran Abs Auto 0.03 X10*3/uL (0.00-0.03); Imm Gran Pct Auto 0.4 % (0.0-0.4); Lymphocytes Absolute Auto 1.6 X10*3/uL (1.2-4.9); Lymphocytes Percent Auto 18.9 % (20-40); Mean Corpuscular HGB Conc 33.8 g/dl (31.0-36.0); Mean Corpuscular Hemoglobin 30.1 pg (27.0-33.0); Mean Platelet Volume 9.5 fL (9.4-12.4); Monocytes Absolute Auto 0.7 X10*3/uL (0.1-1.2); Monocytes Percent Auto 8.6 % (2-11); Neutrophils Absolute Auto 5.7 x10*3/uL (2.0-8.3); Platelet Count 403 X10*3/uL (160-400); Red Blood Count 4.62 X10*6/uL (4.60-5.80); Red Cell Distribution Width 12.4 % (11.0-16.0); White Blood Count 8.5 X10*3/uL (4.8-10.8)
[2024-08-05 14:10] LABS: Iron 123 mcg/dL (45-160); Percent Iron Saturation 31 % (15-50); Total Iron Binding Capacity 398 mcg/dL (228-428); Unsaturated Iron Binding 275 ug/dL
[2024-08-05 14:27] LABS: Ferritin 174 ng/mL (20-250)
[2024-08-05 14:35] LABS: Folate 12.1 ng/mL (> or = 4.0); Vitamin B12 591 pg/mL (200-900)
== END 2024-08-05 11:30 | disposition home or self-care (01) ==
LOC: HO.HMGCLDS 11:29
PROVIDERS: PCP Nurse Practitioner Family; Visit Provider Nurse Practitioner Family
DX: D64.9 Anemia, unspecified (principal)
CPT/HCPCS: 36415; 82607; 82728; 82746; 83540; 85025

== ENCOUNTER 2024-09-15 10:01 | Outpatient (AMB) | payer OTHER, SELFPAY ==
--- NOTE | 2024-09-15 10:07 | A.OFFPC_ITS ---
Vital Signs 09/15/24 10:09 Height 5 ft 11 in Weight 175 lb 6 oz BMI 24.5 BP 124/80 Blood Pressure Location Rt brachial Position Sitting Pulse 65 Pulse Source Pulse Oximeter Temp 98 F Temp Source Oral Pulse Oximetry (%) 97 Oxygen Delivery Method Room Air Intake Visit Reasons: 6m f/u Allergies Penicillins [PENICILLINS] Allergy (Intermediate, Verified 09/15/24 10:10) RASH-CHILDHOOD ALLERGY penicillin V Allergy (Unknown, Verified 09/15/24 10:10) rash-childhood, ? rash Medication List - Last Reconciled 09/15/24 by King Zuniga DRILLING MACHINE OPERATOR- amlodipine 10 mg PO DAILY atorvastatin 40 mg PO DAILY esomeprazole magnesium (Nexium) 40 mg PO DAILY fenofibric acid (choline) 135 mg PO DAILY ibuprofen 800 mg PO Q8H PRN 30 days lidocaine 5% 1 patch topical DAILY lisinopril 40 mg PO DAILY metoprolol succinate ER 100 mg PO DAILY pregabalin 50 mg PO BID 30 days sildenafil (Viagra) 50 mg PO DAILY PRN Tobacco use date assessed: 09/15/24 Dental Screening Dental Screen Date: 09/15/24 Did you have a dental visit in the last 12 months?: Yes Did you have a dental problem in the last 6 months where you did not have access to dental care?: No Was dental information given to patient?: Patient has dentist HPI 6m/u HPI Details Chief Complaint The patient presents for hypertension follow-up. History of Present Illness The patient is a 64-year-old male presenting with hypertension follow-up. He reports no symptoms such as shortness of breath, chest pain, abdominal pain, headaches, blurred vision, or dizziness associated with his hypertension. The patient also experiences cervical neck pain and lower back pain, which he manages regularly. He is retired and has not reported any significant changes in his condition. 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 Review of Systems - Cardiovascular: Denies chest pain, pal pitations, or syncope - Respiratory: Denies dyspnea or cough - Neurological: Denies headaches, dizzin ess, or blurred vision Physical Exam General: Cooperative, healthy appearing, comfortable, no acute distress and well developed Orientation: Patient oriented x3 Limitations: No limitations Head: Normal to inspection Ears: Hearing grossly normal bilaterally Nose: Normal external nose present Face and sinus: Normal facial exam Eyes: Appearance normal, both eyes and all related structures Neck: Normal visual inspection and Yes full ROM Respiratory: Normal respiratory effort and able to speak in complete sentences. Clear to auscultation bilaterally Cardiovascular: Regular rate and rhythm. Normal S1 and S2, no carotid bruits noted bilaterally GI: Normal to inspection. Soft to palpation and nontender Skin: No rashes or lesions noted Neuro: Patient oriented x3 Extremities: Trace edema to right lower extremity, otherwise normal to inspection Results Plan The plan includes continued monitoring of hypertension with future lab work to assess current status and adjust treatment as necessary. The patient is advised to maintain regular follow-ups to manage cervical neck pain and lower back pain effectively. Patient Instructions continue all meds, labs ordered. contact me with further questions or concerns [facility] Medical History HTN (hypertension) Nicotine dependence, cigarettes, uncomplicated Diarrhea Cervical spinal stenosis Surgical History History of lumbar discectomy History of hemilaminectomy History of total right knee replacement History of inguinal hernia repair Family History Father Hyperlipidemia Mother No problems noted. Maternal Grandmother Diabetes mellitus Maternal Grandfather No problems noted. Paternal Grandmother Brain cancer Paternal Grandfather No problems noted. Social History Housing: Apartment Patient Tobacco Use Status: Former Tobacco user Years Smoked: (onset 15yo, 1/2ppd x 48yrs, 24pyh) e-Cigarette/Vaping Use: Never Used Second Hand Smoke Exposure: No service: Yes Current occupational status: employed Cognitive needs: No Hearing needs: No Vision needs: No Questionnaire PHQ-9 Over the last 2 weeks, how often have you been bothered by any of the following problems? 2. Feeling down, depressed, or hopeless: not at all 3. Trouble falling or staying asleep, or sleeping too much: not at all 4. Feeling tired or having little energy: not at all 5. Poor appetite or overeating: not at all 6. Feeling bad about yourself - or that you are a failure or have let yourself or your family down: not at all 7. Trouble concentrating on things, such as reading the newspaper or watching television: not at all 8. Moving or speaking so slowly that other people could have noticed. Or the opposite - being so fidgety or restless that you have been moving around a lot more than usual: not at all 9. Thoughts that you would be better off or of hurting yourself in some way: not at all Depression Screening Interpretation: Negative Depression Screening Done: Yes 24861 - PHQ-9 Billing: Yes Source: Developed by Drs. Joseph Perdomo, Mike Mckinney and colleagues, with an educational radha from [employer]. Thrive Questionnaire Date Thrive assessed: 09/15/24 I am a: Patient What is your living situation today?: I have a steady place to live Within the past 12 months, did the food you bought not last and you didn't have the money to get more?: I choose not to answer this question Within the past 12 months, did you worry whether your food would run out before you got money to buy more?: I choose not to answer this question Do you have trouble paying for medicines?: I choose not to answer this question Do you have trouble getting transportation to medical appointments?: I choose not to answer this question Do you have trouble paying your heating and electricity bill?: I choose not to answer this question Do you have trouble taking care of your child, family member or friend?: I choose not to answer this question Do you have trouble with day-to-day activities such as bathing, preparing meals, shopping, managing finances, etc.?: I choose not to answer this question Are you currently unemployed and looking for a job?: I choose not to answer this question Are you interested in more education?: I choose not to answer this question Please select the resources that you would like help with: None Currently or been in a relationship where the following occur: I choose not to answer THRIVE Score: 0 KAMALJIT-7 AMB Questionnaire KAMALJIT-7 Date KAMALJIT - 7 assessed: 04/16/24 Source: Developed by Drs. Joseph Perdomo, Mike Mckinney and colleagues, with an educational radha from [employer]. Physical exam (Primary Care) Vital Signs: Last Vital Signs Temp 98 F 09/15/24 10:09 Pulse 65 09/15/24 10:09 BP 124/80 09/15/24 10:09 Pulse Ox 97 09/15/24 10:09 Oxygen Delivery Method Room Air 09/15/24 10:09 BMI result Body Mass Index 24.5 Tobacco/Smoking Status: Tobacco use Status Tobacco use date assessed 09/15/24 09/15/24 10:14 Patient Tobacco Use Status Former Tobacco user 09/15/24 10:09 e-Cigarette/Vaping Use Never Used 09/15/24 10:09 Depression Screening Interpretation: Negative Thrive Assessment: Date of Thrive Assessment Date Thrive assessed 09/15/24 09/15/24 10:14 Currently or been in a relationship where the following occur: I choose not to answer Coding Level of Care Code Est Pt Level 3 (42833) Diagnoses HTN (hypertension) I10 Additional Codes PHQ-9 - 16341 - PHQ-9 Billing: Yes ([id number]) Assessment & Plan Assessment & Plan (1) HTN (hypertension): Code(s): I10 - Essential (primary) hypertension Category: Medical Plan . Orders: Orders Lipid Panel Today I10 - Essential (primary) hypertension Complete Blood Count Auto Diff Today I10 - Essential (primary) hypertension Comprehensive [place]. Panel Fast Today I10 - Essential (primary) hypertension TSH reflex Free T4 Today I10 - Essential (primary) hypertension UA CC w/rflx Micro + Cult Today I10 - Essential (primary) hypertension
[2024-09-15 10:09] VITALS: BP 124/80; PULSE 65; TEMP 36.6; O2SAT 97; BMI 24.5
--- OUTSIDE RECORDS SUMMARY | 2024-09-15 11:07 | XMS_ITS | Continuity of Care Document ---
Author Name [facility] Organization [facility] Care Team Providers Care Gunnery/Ordnance Officer Name Role Phone [facility] Unavailable Unavailable Immunizations Combined list of available immunizations from the Department of Defense and Veterans Affairs facilities. Immunization Series Date Given Administered By Site Reaction Lot Number CVX Code Drug Care Professionals Status Comments Source influenza virus vaccine, split virus (incl. purified surface antigen)-reti red CODE 1 2007 [id number] 2AA 15 [employer] ([facility]) complet ed influenza virus vaccine, split virus (incl. purified surface antigen)- retired CODE [facility] typhoid Vi capsular polysaccharid e vaccine 1 2007 [id number] Sanofi Pasteur ([facility]) complet ed typhoid Vi capsular polysacch aride vaccine [facility] influenza virus vaccine, split virus (incl. purified surface antigen)-reti red CODE 1 2006 [id number] 3AA 15 [employer] ([facility]) complet ed influenza virus vaccine, split virus (incl. purified surface antigen)- retired CODE DoD influenza virus vaccine, split virus (incl. purified surface antigen)-reti red CODE 1 2005 [id number] 15 Other (OTH) complet ed influenza virus vaccine, split virus (incl. purified surface antigen)- retired CODE [facility] typhoid vaccine, parenteral, other than acetone-kille d, dried 1 2005 [id number] Sanofi Pasteur ([facility]) complet ed typhoid vaccine, parentera l, other than acetone-k illed, dried DoD influenza virus vaccine, split virus (incl. purified surface antigen)-reti red CODE 1 2004 [id number] 15 Sanofi Pasteur ([facility]) complet ed influenza virus vaccine, split virus (incl. purified surface antigen)- retired CODE [facility] influenza virus vaccine, live, attenuated, for intranasal use 0 2004 [id number] [employer] (MED) complet ed influenza virus vaccine, live, attenuate d, for intranasa l use DoD typhoid vaccine, parenteral, other than acetone-kille d, dried 0 2003 [id number] 41 [facility] ([facility]) complet ed typhoid vaccine, parentera l, other than acetone-k illed, dried DoD influenza virus vaccine, whole virus 0 [id number] [facility] ([facility]) complet ed influenza virus vaccine, whole virus DoD poliovirus vaccine, inactivated 0 2002 [id number] 10 [facility] ([facility]) complet ed polioviru s vaccine, inactivat ed DoD tuberculin skin test; purified protein derivative solution, intradermal 1 2002 Unknown, Provider 96 () complet ed tuberculi n skin test; purified protein derivativ e solution, intraderm al DoD influenza virus vaccine, whole virus 0 2001 [id number] 16 [facility]) complet ed influenza virus vaccine, whole virus DoD tetanus and diphtheria toxoids, adsorbed, preservative free, for adult use (2 Lf of tetanus toxoid and 2 Lf of diphtheria toxoid) 0 2001 [id number] [facility] ([facility]) complet ed tetanus and diphtheri a toxoids, adsorbed, preservat girish free, for adult use (2 Lf of tetanus toxoid and 2 Lf of diphtheri a toxoid) DoD influenza virus vaccine, whole virus 0 [id number] [facility] ([facility]) complet ed influenza virus vaccine, whole virus DoD tuberculin skin test; purified protein derivative solution, intradermal 1 2001 Unknown, Provider [id number] [facility] ([facility]) complet ed tuberculi n skin test; purified protein derivativ e solution, intraderm al DoD influenza virus vaccine, whole virus 0 2000 [id number] 16 [employer] (CON) complet ed influenza virus vaccine, whole virus DoD tuberculin skin test; purified protein derivative solution, intradermal 1 1999 Unknown, Provider 2518-11 [employer] (CON) complet ed tuberculi n skin test; purified protein derivativ e solution, intraderm al DoD influenza virus vaccine, whole virus 0 [id number] 16 [employer] ([facility]) complet ed influenza virus vaccine, whole virus DoD measles, mumps and rubella virus vaccine 0 1997 [id number] George (AB) complet ed measles, mumps and rubella virus vaccine DoD influenza virus vaccine, whole virus 0 [id number] 16 S[employer] (CON) complet ed influenza virus vaccine, whole virus DoD hepatitis A vaccine, adult dosage 2 1997 [id number] 52 [employer] ([facility]) complet ed hepatitis A vaccine, adult dosage DoD influenza virus vaccine, whole virus 0 [id number] 16 [employer] (WAL) complet ed influenza virus vaccine, whole virus DoD typhoid vaccine, live, oral 0 1997 [id number] 25 [employer] ([facility]) complet ed typhoid vaccine, live, oral DoD meningococcal polysaccharid e vaccine (MPSV4) 0 [id number] 32 [employer] (CON) complet ed meningoco ccal [...]
== END 2024-09-15 10:41 | disposition home or self-care (01) ==
LOC: HO.HMCC 10:02
PROVIDERS: PCP Nurse Practitioner Family; Visit Provider Nurse Practitioner Family
DX: I10 Essential (primary) hypertension (principal)

== ENCOUNTER → 2024-09-15 10:01 | Outpatient (BNVA) | payer MEDICARE, OTHER, SELFPAY | PROVIDERS: PCP Nurse Practitioner Family; Visit Provider Nurse Practitioner Family | DX: I10 Essential (primary) hypertension (principal) | CPT/HCPCS: 96127; 99212 ==

== ENCOUNTER 2024-10-30 09:28 | Outpatient (REF) | payer OTHER, SELFPAY ==
--- NOTE | ~2024-10-30 | XR_ITS ---
EXAMINATION: XR CHEST 2 VIEWS HISTORY: R53.83 - Other fatigue COMPARISON: Comparison is made with the prior examination dated 06/22/2020. FINDINGS: PA and lateral views of the chest are submitted. The lungs are expanded and clear. There is no pleural effusion, pneumothorax, or pulmonary vascular congestion. The heart is normal in size. The bones are intact. XR/XR chest 2V IMPRESSION: No acute cardiopulmonary abnormality. Electronically signed by: Joseph Merritt MD 10/30/2024 09:56 AM EDT
--- OUTSIDE RECORDS SUMMARY | 2024-10-30 09:47 | XMS_ITS | Continuity of Care Document ---
Author Name [facility] Organization [facility] Care Team Providers Care Youth Corrections Officer Name Role Phone [facility] Unavailable Unavailable Immunizations Combined list of available immunizations from the Department of Defense and Veterans Affairs facilities. Immunization Series Date Given Administered By Site Reaction Lot Number CVX Code Drug Flagstone Layer Status Comments Source influenza virus vaccine, split virus (incl. purified surface antigen)-reti red CODE 1 2007 [id number] 2AA 15 [employer] ([facility]) complet ed influenza virus vaccine, split virus (incl. purified surface antigen)- retired CODE [facility] typhoid Vi capsular polysaccharid e vaccine 1 2007 [id number] Sanofi Pasteur ([facility]) complet ed typhoid Vi capsular polysacch aride vaccine [facility] influenza virus vaccine, split virus (incl. purified surface antigen)-reti red CODE 1 2006 [id number] 15 [employer] ([facility]) complet ed influenza virus vaccine, split virus (incl. purified surface antigen)- retired CODE DoD influenza virus vaccine, split virus (incl. purified surface antigen)-reti red CODE 1 2005 [id number] 15 Other (OTH) complet ed influenza virus vaccine, split virus (incl. purified surface antigen)- retired CODE [facility] typhoid vaccine, parenteral, other than acetone-kille d, dried 1 2005 [id number] 41 Sanofi Pasteur ([facility]) complet ed typhoid vaccine, parentera l, other than acetone-k illed, dried DoD influenza virus vaccine, split virus (incl. purified surface antigen)-reti red CODE 1 2004 [id number] 15 Sanofi Pasteur ([facility]) complet ed influenza virus vaccine, split virus (incl. purified surface antigen)- retired CODE [facility] influenza virus vaccine, live, attenuated, for intranasal use 0 2004 [id number] [employer] (MED) complet ed influenza virus vaccine, live, attenuate d, for intranasa l use DoD typhoid vaccine, parenteral, other than acetone-kille d, dried 0 2003 [id number] 41 [facility] ([facility]) complet ed typhoid vaccine, parentera l, other than acetone-k illed, dried DoD influenza virus vaccine, whole virus 0 2002 [id number] 16 [facility] ([facility]) complet ed influenza virus vaccine, whole virus DoD poliovirus vaccine, inactivated 0 2002 [id number] 10 [facility] ([facility]) complet ed polioviru s vaccine, inactivat ed DoD tuberculin skin test; purified protein derivative solution, intradermal 1 2002 Unknown, Provider 96 () complet ed tuberculi n skin test; purified protein derivativ e solution, intraderm al DoD influenza virus vaccine, whole virus 0 2001 [id number] 16 [facility] complet ed influenza virus vaccine, whole virus DoD tetanus and diphtheria toxoids, adsorbed, preservative free, for adult use (2 Lf of tetanus toxoid and 2 Lf of diphtheria toxoid) 0 2001 [id number] 09 [facility] ([facility]) complet ed tetanus and diphtheri a toxoids, adsorbed, preservat girish free, for adult use (2 Lf of tetanus toxoid and 2 Lf of diphtheri a toxoid) DoD influenza virus vaccine, whole virus 0 2001 [id number] 16 [facility] ([facility]) complet ed influenza virus vaccine, whole virus DoD tuberculin skin test; purified protein derivative solution, intradermal 1 2001 Unknown, Provider [id number] [facility] ([facility]) complet ed tuberculi n skin test; purified protein derivativ e solution, intraderm al DoD influenza virus vaccine, whole virus 0 2000 [id number] 16 [employer] (CON) complet ed influenza virus vaccine, whole virus DoD tuberculin skin test; purified protein derivative solution, intradermal 1 1999 Unknown, Provider 2518-11 [employer] (CON) complet ed tuberculi n skin test; purified protein derivativ e solution, intraderm al DoD influenza virus vaccine, whole virus 0 [id number] 16 [employer] ([facility]) complet ed influenza virus vaccine, whole virus DoD measles, mumps and rubella virus vaccine 0 1997 [id number] 03 George (AB) complet ed measles, mumps and rubella virus vaccine DoD influenza virus vaccine, whole virus 0 [id number] 16 Sondrat (CON) complet ed influenza virus vaccine, whole virus DoD hepatitis A vaccine, adult dosage 2 1997 [id number] 52 [employer] ([facility]) complet ed hepatitis A vaccine, adult dosage DoD influenza virus vaccine, whole virus 0 [id number] 16 [employer] ([facility]) complet ed influenza virus vaccine, whole virus DoD typhoid vaccine, live, oral 0 1997 [id number] 25 [employer] ([facility]) complet ed typhoid vaccine, live, oral DoD meningococcal polysaccharid e vaccine (MPSV4) 0 [id number] 32 [employer] (CON) complet ed meningoco ccal [...]
[2024-10-30 13:01] LABS: Appearance Urine Clear; Glucose Urine UA Negative (Negative); PH 5.5 (5.0-9.0); Specific Gravity - Urine 1.025 (1.005-1.025)
[2024-10-30 13:12] LABS: MANUAL DIFF FLAG NO
[2024-10-30 13:20] LABS: Hematocrit 41.0 % (42.0-52.0); Hemoglobin 13.8 g/dl (14.0-18.0); Imm Gran Abs Auto 0.04 X10*3/uL (0.00-0.03); Imm Gran Pct Auto 0.5 % (0.0-0.4); Lymphocytes Absolute Auto 2.1 X10*3/uL (1.2-4.9); Mean Corpuscular HGB Conc 33.7 g/dl (31.0-36.0); Mean Corpuscular Hemoglobin 28.9 pg (27.0-33.0); Mean Corpuscular Volume 86.0 fL (80.0-98.0); NRBC Abs Auto 0.000 X10*3/uL (0.0-0.012); NRBC Pct Auto 0.0 /100WBC (0.0-0.2); Platelet Count 418 X10*3/uL (160-400); Red Blood Count 4.77 X10*6/uL (4.60-5.80); White Blood Count 8.6 X10*3/uL (4.8-10.8)
[2024-10-30 13:52] LABS: B Type Natriuretic Peptide 19 pg/mL (<100)
[2024-10-30 14:15] LABS: Alanine Aminotransferase 16 U/L (0-40); Albumin Level 4.6 g/dL (3.5-5.0); Alkaline Phosphatase 48 U/L (39-117); Anion Gap 12 (12-20); Aspartate Amino Transferase 28 U/L (5-37); Blood Urea Nitrogen 14 mg/dL (9-16); Calcium 9.3 mg/dL (8.4-10.2); Carbon Dioxide 27 mmol/L (22-29); Chloride 107 mmol/L (96-108); Cholesterol 146 mg/dL (<200); Estimated Glomerular Filt Rate > 60; HDL Cholesterol 50 mg/dL (>40); Potassium 4.2 mmol/L (3.3-5.1); Sodium 142 mmol/L (135-145); Total Protein 7.2 g/dL (6.5-8.0); Triglycerides 84 mg/dL (<150)
[2024-10-31 10:50] LABS: Lyme Abs Screen <0.90 index
[2024-10-31 15:09] LABS: A. Phagocytphilium DNA,RT-PCR NOT DETECTED (NOT DETECTED); Babesia Microti DNA, RT-PCR NOT DETECTED (NOT DETECTED); Borrelia Miyamotoi,DNA RT-PCR NOT DETECTED (NOT DETECTED); E.Chaffeensis DNA RT-PCR NOT DETECTED (NOT DETECTED); Lyme(Borrelia ssp)DNA RT-PCR NOT DETECTED (NOT DETECTED)
[2024-11-03 11:33] LABS: Anti Nuclear Antibody Screen NEGATIVE (NEGATIVE)
== END 2024-10-30 09:29 | disposition home or self-care (01) ==
LOC: HO.HMGCX 09:28
PROVIDERS: PCP Nurse Practitioner Family; Visit Provider Nurse Practitioner Family
DX: Z01.84 Encounter for antibody response examination (principal); I10 Essential (primary) hypertension; R53.83 Other fatigue
CPT/HCPCS: 36415; 71046; 80053; 80061; 81003; 83880; 84443; 85025; 86038; 86617; 86618; 87468; 87469; 87478; 87484; 87798

== ENCOUNTER → 2024-10-30 09:32 | Outpatient (BNV) | payer OTHER, SELFPAY | PROVIDERS: PCP Nurse Practitioner Family; Visit Provider Radiology Diagnostic Radiology | DX: R53.83 Other fatigue (principal) | CPT/HCPCS: 71046 ==

== ENCOUNTER 2025-01-05 11:01 | Outpatient (REF) | payer OTHER, SELFPAY ==
[2025-01-05 16:11] LABS: MANUAL DIFF FLAG NO
[2025-01-05 16:19] LABS: Hematocrit 43.1 % (42.0-52.0); Hemoglobin 14.5 g/dl (14.0-18.0); Imm Gran Abs Auto 0.05 X10*3/uL (0.00-0.03); Imm Gran Pct Auto 0.5 % (0.0-0.4); Lymphocytes Absolute Auto 2.1 X10*3/uL (1.2-4.9); Mean Corpuscular HGB Conc 33.6 g/dl (31.0-36.0); Mean Corpuscular Hemoglobin 29.0 pg (27.0-33.0); Mean Corpuscular Volume 86.2 fL (80.0-98.0); NRBC Abs Auto 0.000 X10*3/uL (0.0-0.012); NRBC Pct Auto 0.0 /100WBC (0.0-0.2); Platelet Count 449 X10*3/uL (160-400); Red Blood Count 5.00 X10*6/uL (4.60-5.80); White Blood Count 10.7 X10*3/uL (4.8-10.8)
[2025-01-05 16:35] LABS: Alanine Aminotransferase 14 U/L (0-40); Albumin Level 4.9 g/dL (3.5-5.0); Alkaline Phosphatase 44 U/L (39-117); Anion Gap 10 (12-20); Aspartate Amino Transferase 20 U/L (5-37); Blood Urea Nitrogen 18 mg/dL (9-16); Calcium 9.9 mg/dL (8.4-10.2); Carbon Dioxide 26 mmol/L (22-29); Chloride 105 mmol/L (96-108); Estimated Glomerular Filt Rate > 60; Potassium 4.3 mmol/L (3.3-5.1); Sodium 137 mmol/L (135-145); Total Protein 7.4 g/dL (6.5-8.0)
== END 2025-01-05 11:02 | disposition home or self-care (01) ==
LOC: HO.HMGCLDS 11:01
PROVIDERS: PCP Nurse Practitioner Family; Visit Provider Physician Assistant Medical
DX: R11.0 Nausea (principal); Z79.899 Other long term (current) drug therapy
CPT/HCPCS: 36415; 80053; 83013; 85025; 99212

== ENCOUNTER 2025-01-05 11:01 | Outpatient (AMB) | payer OTHER, SELFPAY ==
[2025-01-05 12:10] VITALS: BP 122/70; PULSE 71; TEMP 36.7; O2SAT 97; BMI 24.3
--- NOTE | 2025-01-05 12:10 | AM.OFFWIN_ITS ---
Intake Vital Signs 01/05/25 12:10 Height 5 ft 11 in Weight 174 lb 6 oz BMI 24.3 BP 122/70 Blood Pressure Location Lt brachial Position Sitting Pulse 71 Pulse Source Pulse Oximeter Temp 98.0 F Temp Source Oral Pulse Oximetry (%) 97 Oxygen Delivery Method Room Air Intake Visit Reasons: EP Nausea, Gerd Patient Tobacco Use Status: Former Tobacco user Allergies Penicillins (PENICILLINS) Allergy (Intermediate, Verified 01/05/25 12:19) RASH-CHILDHOOD ALLERGY penicillin V Allergy (Unknown, Verified 01/05/25 12:19) rash-childhood, ? rash Do you need a note to return to daycare/school/sports/work: Yes HPI HPI Comments History of Present Illness Details History of Present Illness - The patient is a 64-year-old male pres enting with anxiety and gastrointestinal symptoms. - He initially attributed his symptoms t o anxiety, experiencing nausea, numbness, and tingling on his arms and legs. - He has been prescribed hydroxyzine by his primary care physician and has stopped drinking beer to see if it helps his symptoms. - He reports abdominal discomfort, nause a, and bloating, with no relief from Nexium, and is unsure if symptoms are due to reflux or anxiety. - The patient also reports upper right b ack pain and decreased appetite, with no fever, chills, or gastrointestinal bleeding. - He has not made recent dietary changes and denies sick contacts, with normal lab results from a month ago. - He denies vomiting, hematochezia, clay na, diarrhea, constipation, CP, SOB, fever, chills dysuria, or hematuria. Physical Exam General: Cooperative, healthy appearing, comfortable, no acute distress and well developed Orientation: Patient oriented x3 Limitations: No limitations Respiratory: Normal respiratory effort and able to speak in complete sentences. Clear to auscultation bilaterally. No w/r/r noted. Cardiovascular: Regular rate and rhythm. Normal S1 and S2. No m/r/g noted. GI: Normal to inspection. Soft to palpation and nontender, non distended. No TTP of all 4 quadrants. No guarding noted. No rebound tenderness noted. Negative [place]. Negative Rovsing noted. Negative CVA tenderness noted Skin: No rashes or lesions noted Patient was informed and verbally consented to the use of an ambient scribe for clinic note documentation during this visit. [facility] Medical History HTN (hypertension) Nicotine dependence, cigarettes, uncomplicated Diarrhea Cervical spinal stenosis Surgical History History of lumbar discectomy History of hemilaminectomy History of total right knee replacement History of inguinal hernia repair Family History Father Hyperlipidemia Mother No problems noted. Maternal Grandmother Diabetes mellitus Maternal Grandfather No problems noted. Paternal Grandmother Brain cancer Paternal Grandfather No problems noted. Social History Housing: Apartment Patient Tobacco Use Status: Former Tobacco user Years Smoked: (onset 15yo, 1/2ppd x 48yrs, 24pyh) e-Cigarette/Vaping Use: Never Used Second Hand Smoke Exposure: No service: Yes Current occupational status: employed Cognitive needs: No Hearing needs: No Vision needs: No Review of Systems Const All systems reviewed & are unremarkable except as noted in HPI and below Physical Exam Vital Signs: Last Vital Signs Temp 98.0 F 01/05/25 12:10 Pulse 71 01/05/25 12:10 BP 122/70 01/05/25 12:10 Pulse Ox 97 01/05/25 12:10 Oxygen Delivery Method Room Air 01/05/25 12:10 BMI result Body Mass Index 24.3 Assessment & Plan Assessment & Plan (1) Nausea: Code(s): R11.0 - Nausea Plan Most likely GERD or an ulcer, h pylori, or anxiety H pylori breath test in the office plan - Continue hydroxyzine as prescribed by the primary care physician. - Add famotidine 20 mg daily to current medication regimen. - Perform H. pylori breath test in the office. - Order laboratory tests to further evaluate symptoms. - Prescribe Zofran 4 mg tablets as needed for nausea. - Consider ultrasound if symptoms persist and labs are negative, in consultation with primary care physician. Orders: Orders H Pylori Breath Test Today Complete Blood Count Auto Diff Today R11.0 - Nausea Comprehensive Met. Panel Today R11.0 - Nausea Medications: New famotidine 20 mg PO DAILY 30 tabs 0RF 30 days ondansetron 4 mg PO Q8H PRN 10 tabs 0RF nausea and vomiting Coding Level of Care Code Est Pt Level 4 (02565) Diagnoses Nausea R11.0
== END 2025-01-05 13:56 | disposition home or self-care (01) ==
PROVIDERS: PCP Nurse Practitioner Family; Visit Provider Physician Assistant Medical
DX: R11.0 Nausea (principal)

== ENCOUNTER 2025-01-21 10:45 | Outpatient (AMB) | payer OTHER, SELFPAY ==
[2025-01-21 11:09] VITALS: BP 130/62; TEMP 37; O2SAT 98; BMI 24.7
--- NOTE | 2025-01-21 11:09 | AM.OFFWIN_ITS ---
Intake Vital Signs 01/21/25 11:09 Height 5 ft 11 in Weight 177 lb BMI 24.7 BP 130/62 Blood Pressure Location Lt brachial Position Sitting Pulse Source Pulse Oximeter Temp 98.6 F Temp Source Oral Pulse Oximetry (%) 98 Oxygen Delivery Method Room Air Intake Visit Reasons: EP Nausea, back/shoulder pain Intake Note: Patient presents with c/o nausea, back/shoulder pain - ongoing x3 weeks (seen by Jannie) Patient Tobacco Use Status: Former Tobacco user Allergies Penicillins (PENICILLINS) Allergy (Intermediate, Verified 01/21/25 11:12) RASH-CHILDHOOD ALLERGY penicillin V Allergy (Unknown, Verified 01/21/25 11:12) rash-childhood, ? rash Medication List - Last Reconciled 01/21/25 by Charu Cotter MD amlodipine 10 mg PO DAILY atorvastatin 40 mg PO DAILY esomeprazole magnesium (Nexium) 40 mg PO DAILY famotidine 20 mg PO DAILY 30 days fenofibric acid (choline) 135 mg PO DAILY ibuprofen 800 mg PO Q8H PRN 30 days lidocaine 5% 1 patch topical DAILY PRN lisinopril 40 mg PO DAILY metoprolol succinate ER 100 mg PO DAILY ondansetron 4 mg PO Q8H PRN 10 days sertraline 25 mg PO DAILY 30 days sildenafil (Viagra) 50 mg PO DAILY PRN varenicline tartrate (Chantix Starting Month Box) PO PER PKG DIR Do you need a note to return to daycare/school/sports/work: No HPI HPI Comments History of Present Illness Details History of Present Illness The patient is a 64-year-old male presenting with persistent nausea, fatigue, and discomfort. Nausea: - Experienced persistent nausea for a fe w weeks - He was last seen in our office on 01/05 for symptoms. Was prescribed famotidine and zofran in addition to Nexium - Reports famotidine slightly helped. Sy mptoms had been improving until this morning when he awoke to nausea. - Nausea described as a sensation spread ing through the stomach upon waking and sitting up. - Associated with non-specific discomfor t rather than distinct pain. - No known food-related aggravation. - Denies any worsening of pain with larg e meals or laying down - Reports previous improvement with medi cation but currently reemerging discomfort. - Regularly consumes Xanax 25 mg for anx iety. - Nausea typically prominent before anxi ety mechanisms recognized. - Bowel movement approximately every 1.5 days, partially attributed to high- protein intake. - Denies and vomiting or diarrhea. No fe vers or chills, but reports occasional night sweats. - Previous abdominal CT scan (08/10/23) showed gallbladder contraction Review of Systems Constitutional: Reports fatigue. Negative for fevers, chills Respiratory: Negative for cough, shortness of breath Cardiac: Negative for chest pain Gastrointestinal: Positive for nausea. Negative for abdominal pain, vomiting, blood in stool, diarrhea. Genitourinary: Negative for difficulty urinating, dysuria, urinary frequency, urinary urgency Neurological: Negative for dizziness, headaches, light headedness, numbness, weakness Physical Exam General Appearance: Normal appearance, well developed. No acute distress Head: Normocephalic, atraumatic Eyes: No scleral icterus Pulmonary: No respiratory distress. Speaking in full sentences Gastroenterology: Abdomen is soft and nontender to palpation. Negative murphys sign. No guarding or rigidity present Musculoskeletal: Moving all extremities spontaneously and against gravity Skin: No jaundice Mental Status: Alert and Oriented x 3 Psychiatric: Normal mood. Normal affect. [facility] Medical History HTN (hypertension) Nicotine dependence, cigarettes, uncomplicated Diarrhea Cervical spinal stenosis Surgical History History of lumbar discectomy History of hemilaminectomy History of total right knee replacement History of inguinal hernia repair Family History Father Hyperlipidemia Mother No problems noted. Maternal Grandmother Diabetes mellitus Maternal Grandfather No problems noted. Paternal Grandmother Brain cancer Paternal Grandfather No problems noted. Social History Housing: Apartment Patient Tobacco Use Status: Former Tobacco user Years Smoked: (onset 15yo, 1/2ppd x 48yrs, 24pyh) e-Cigarette/Vaping Use: Never Used Second Hand Smoke Exposure: No service: Yes Current occupational status: employed Cognitive needs: No Hearing needs: No Vision needs: No Physical Exam Vital Signs: Last Vital Signs Temp 98.6 F 01/21/25 11:09 BP 130/62 01/21/25 11:09 Pulse Ox 98 01/21/25 11:09 Oxygen Delivery Method Room Air 01/21/25 11:09 BMI result Body Mass Index 24.7 Assessment & Plan Assessment & Plan (1) Nausea: Code(s): R11.0 - Nausea Plan Unclear etiology of ongoing nausea, fatigue, and discomfort. Currently, abdomen is soft and nontender to palpation. Discussed GERD as a potential source of patient's symptoms, however patient denies any worsening symptoms after eating large meals, lying down, or epigastric pain. Patient reports mild improvement since Pepcid was added to his PPI. Discussed behavioral changes such as avoiding acidic fruits such as fruit juices, tomatos, and coffee. Advised against NSAIDs. Advised to eat small frequent meals throughout the day and avoid large meals. Recommended elevating the head of the bed while sleeping. Also discussed anxiety as a possible component of nausea. Patient reports that he has been taking Xanax and therefore has not been as anxious recently. Patient reports Zofran was helpful and was medication was recently refilled by his PCP. Patient does have an upcoming abdominal ultrasound to assess his gallbladder which he was advised to have performed. Advised prompt medical evaluation if he develops acute abdominal pain, vomiting, fevers, bloody/black tarry stools. Coding Level of Care Code Est Pt Level 3 (75425) Diagnoses Nausea R11.0
== END 2025-01-21 12:19 | disposition home or self-care (01) ==
PROVIDERS: PCP Nurse Practitioner Family; Visit Provider Family Medicine
DX: R11.0 Nausea (principal)
CPT/HCPCS: 99213

== ENCOUNTER → 2025-01-21 10:45 | Outpatient (BNVA) | payer OTHER, SELFPAY | PROVIDERS: PCP Nurse Practitioner Family; Visit Provider Family Medicine | DX: R11.0 Nausea (principal); R53.83 Other fatigue | CPT/HCPCS: 99212 ==

== ENCOUNTER 2025-02-05 11:19 | Outpatient (REF) | payer OTHER, SELFPAY ==
--- NOTE | ~2025-02-05 | US_ITS ---
CLINICAL HISTORY: R10.9 - Unspecified abdominal pain US abdomen complete Comparison: None provided Findings: The visualized pancreas is normal. The aorta and inferior vena cava are normal caliber. The liver is normal in size and echotexture. 6 mm calcification or benign hemangioma within the right hepatic lobe. There is no intrahepatic bile duct dilatation. The common duct is 3.0 mm in diameter. The gallbladder is normal. There is no sonographic Ding sign. The main portal vein is antegrade. The right kidney is 11.8 cm in length. The left kidney is 11.6 cm in length. The spleen is normal. No ascites. IMPRESSION: No acute or suspicious abnormality. This document has been electronically signed by: Solis Yanes MD on 02/06/2025 10:56:52
== END 2025-02-05 11:20 | disposition home or self-care (01) ==
LOC: HO.US 11:19
PROVIDERS: PCP Nurse Practitioner Family; Visit Provider Nurse Practitioner Family
DX: R10.9 Unspecified abdominal pain (principal)
CPT/HCPCS: 76700

== ENCOUNTER → 2025-02-05 11:21 | Outpatient (BNV) | payer OTHER, SELFPAY | PROVIDERS: PCP Nurse Practitioner Family; Visit Provider Radiology Vascular & Interventional Radiology | DX: R10.9 Unspecified abdominal pain (principal) | CPT/HCPCS: 76700 ==

== ENCOUNTER 2025-03-19 12:52 | Outpatient (AMB) | payer OTHER, SELFPAY ==
[2025-03-19 12:55] VITALS: BP 148/82; PULSE 68; RESP 16; O2SAT 98; BMI 26.2
--- NOTE | 2025-03-19 12:55 | A.OFFPC_ITS ---
Vital Signs 03/19/25 12:55 03/19/25 13:34 Height 5 ft 11 in Weight 188 lb BMI 26.2 BP 148/82 H 124/74 Blood Pressure Location Rt brachial Lt brachial Position Sitting Sitting Respiration 16 Pulse 68 Pulse Source Pulse Oximeter Pulse Oximetry (%) 98 Oxygen Delivery Method Room Air Intake Visit Reasons: Pain Hospital Chaplain Required: No Accompanied by: Self / Same As Patient Allergies Penicillins (PENICILLINS) Allergy (Intermediate, Verified 03/19/25 13:03) RASH-CHILDHOOD ALLERGY penicillin V Allergy (Unknown, Verified 03/19/25 13:03) rash-childhood, ? rash Tobacco use date assessed: 03/19/25 Dental Screening Dental Screen Date: 03/19/25 Did you have a dental visit in the last 12 months?: Yes Did you have a dental problem in the last 6 months where you did not have access to dental care?: No Was dental information given to patient?: Patient has dentist HPI Pain HPI Details Chief Complaint The patient presents with ongoing, increasing lower back pain with radicular symptoms radiating down his buttocks and bilateral extremities. History of Present Illness The patient is a 64-year-old male presenting with increasing chronic lower back pain. He has a history of two prior lumbar surgeries, including a right L4-L5 discectomy in 2021 and bilateral L3-S1 hemilaminectomies with bilateral foraminotomies in May 2022. He reports a recent increase in lower back pain, described as mostly transverse, with radicular symptoms extending down his buttocks and bilateral lower extremities. He also notes weakness in his bilateral extremities and difficulty with heel and toe walking. These symptoms have been worsening for over a month. The patient's pain increases in a supine position while performing [id number] raises and entire lower extremity raises, which provoke radiculopathy to the buttocks bilaterally. He performs stretches and exercises at home, but these have not been helping. He also recently moved, which may have contributed to his symptoms. He denies any signs or symptoms of cauda equina syndrome, chest pain, shortness of breath, headaches, or blurred vision. HTN: stable after resting periodically Social History - Functional Status: Performs stretches and exercises at home. - Recent Life Events: The patient recent ly moved. Health Maintenance - The patient performs stretches and exe rcises at home for his back pain. Review of Systems - Musculoskeletal: Reports increasing lo wer back pain. - Neurological: Reports radicular sympto ms down his buttocks and bilateral extremities, weakness in bilateral extremities, and difficulty with heel and toe walking. Denies headaches or blurred vision. - Cardiovascular: Denies chest pain. His blood pressure normalized after sitting for a while. - Respiratory: Denies shortness of breat h. - Genitourinary/Gastrointestinal: Denies signs or symptoms of cauda equina syndrome. Physical Exam General: Cooperative, healthy appearing, comfortable, no acute distress and well developed Orientation: Patient oriented x3 Limitations: Difficulty performing heel and toe walking Head: Normal to inspection Ears: Hearing grossly normal bilaterally Nose: Normal external nose present Face and sinus: Normal facial exam Eyes: Appearance normal, both eyes and all related structures Neck: Normal visual inspection and Yes full ROM Respiratory: Normal respiratory effort and able to speak in complete sentences. Clear to auscultation bilaterally Cardiovascular: Regular rate and rhythm. Normal S1 and S2 GI: Normal to inspection. Soft to palpation and nontender Skin: No rashes or lesions noted Neuro: Patient oriented x3, reported weakness to bilateral extremities Extremities: difficult time with heel and toe walking. with pt in supine position, pain increased with radiculopathy with knee to chest raises and entire lower extrem raises. Results Plan 1. Chronic Lower Back Pain With Radiculo vanessa The patient presents with worsening chronic low back pain, weakness, and radicular symptoms despite previous lumbar surgeries and home exercises. Given his history and the progression of his symptoms, an MRI will be ordered to assess for underlying pathology. A referral will be placed for him to be evaluated by neurosurgery. Discussion Notes I discussed with the patient my concern for his increasing lower back pain and radicular symptoms, particularly given his surgical history. I explained that while his recent move may have contributed to his symptoms, it is important to investigate further. I recommended obtaining an MRI to see what is causing the current issues and advised that I would place a referral for him to be seen by neurosurgery. Patient Instructions - We are ordering a lower back MRI to fi nd out what is causing your increased pain. - We will make a referral for you to see a neurosurgery specialist for your back. [facility] Medical History HTN (hypertension) Nicotine dependence, cigarettes, uncomplicated Diarrhea Cervical spinal stenosis Surgical History History of lumbar discectomy History of hemilaminectomy History of total right knee replacement History of inguinal hernia repair Family History Father Hyperlipidemia Mother No problems noted. Maternal Grandmother Diabetes mellitus Maternal Grandfather No problems noted. Paternal Grandmother Brain cancer Paternal Grandfather No problems noted. Social History Housing: Apartment Patient Tobacco Use Status: Former Tobacco user Years Smoked: (onset 15yo, 1/2ppd x 48yrs, 24pyh) e-Cigarette/Vaping Use: Never Used Second Hand Smoke Exposure: No service: Yes Current occupational status: employed Cognitive needs: No Hearing needs: No Vision needs: No Questionnaire PHQ-9 Over the last 2 weeks, how often have you been bothered by any of the following problems? 1. Little interest or pleasure in doing things: not at all 2. Feeling down, depressed, or hopeless: not at all 3. Trouble falling or staying asleep, or sleeping too much: not at all 4. Feeling tired or having little energy: not at all 5. Poor appetite or overeating: not at all 6. Feeling bad about yourself - or that you are a failure or have let yourself or your family down: not at all 7. Trouble concentrating on things, such as reading the newspaper or watching television: not at all 8. Moving or speaking so slowly that other people could have noticed. Or the opposite - being so fidgety or restless that you have been moving around a lot more than usual: not at all 9. Thoughts that you would be better off or of hurting yourself in some way: not at all Total score: 0 Depression Screening Interpretation: Negative Depression Screening Done: Yes 62565 - PHQ-9 Billing: Yes Source: Developed by Drs. Joseph Perdomo, Lisseth Lara, Mike Bowden and colleagues, with an educational radha from [employer]. Thrive Questionnaire Date Thrive assessed: 04/16/24 I am a: Patient What is your living situation today?: I have a steady place to live Within the past 12 months, did the food you bought not last and you didn't have the money to get more?: I choose not to answer this question Within the past 12 months, did you worry whether your food would run out before you got money to buy more?: I choose not to answer this question Do you have trouble paying for medicines?: I choose not to answer this question Do you have trouble getting transportation to medical appointments?: I choose not to answer this question Do you have trouble paying your heating and electricity bill?: I choose not to answer this question Do you have trouble taking care of your child, family member or friend?: I choose not to answer this question Do you have trouble with day-to-day activities such as bathing, preparing meals, shopping, managing finances, etc.?: I choose not to answer this question Are you currently unemployed and looking for a job?: I choose not to answer this question Are you interested in more education?: I choose not to answer this question Please select the resources that you would like help with: None Currently or been in a relationship where the following occur: I choose not to answer THRIVE Score: 0 KAMALJIT-7 AMB Questionnaire KAMALJIT-7 Date KAMALJIT - 7 assessed: 04/16/24 Source: Developed by Drs. Joseph Perdomo, Lisseth Lara, Mike Bowden and colleagues, with an educational radha from [employer]. Physical exam (Primary Care) Vital Signs: Last Vital Signs Pulse 68 03/19/25 12:55 Resp 16 03/19/25 12:55 BP 148/82 H 03/19/25 12:55 Pulse Ox 98 03/19/25 12:55 Oxygen Delivery Method Room Air 03/19/25 12:55 BMI result Body Mass Index 26.2 Tobacco/Smoking Status: Tobacco use Status Tobacco use date assessed 03/19/25 03/19/25 12:57 Patient Tobacco Use Status Former Tobacco user 03/19/25 12:57 e-Cigarette/Vaping Use Never Used 03/19/25 12:57 PHQ-9: PHQ-9 Score PHQ-9: Total score 0 03/19/25 13:20 Depression Screening Interpretation: Negative Thrive Assessment: Date of Thrive Assessment Date Thrive assessed 04/16/24 03/19/25 12:57 Currently or been in a relationship where the following occur: I choose not to answer Coding Level of Care Code Est Pt Level 3 (87031) Diagnoses Lumbar radiculopathy M54.16 HTN (hypertension) I10 Screening PSA (prostate specific antigen) Z12.5 Additional Codes PHQ-9 - 81814 - PHQ-9 Billing: Yes ([id number]) Assessment & Plan Assessment & Plan (1) Lumbar radiculopathy: Code(s): M54.16 - Radiculopathy, lumbar region Category: Medical (2) HTN (hypertension): Code(s): I10 - Essential (primary) hypertension Category: Medical (3) Screening PSA (prostate specific antigen): Code(s): Z12.5 - Encounter for screening for malignant neoplasm of prostate Category: Medical Plan . Orders: Orders MR lumbar spine wo con Today M54.16 - Radiculopathy, lumbar region Complete Blood Count Auto Diff Today I10 - Essential (primary) hypertension Comprehensive [place]. Panel Fast Today I10 - Essential (primary) hypertension TSH reflex Free T4 Today I10 - Essential (primary) hypertension UA CC w/rflx Micro + Cult Today I10 - Essential (primary) hypertension Lipid Panel Today I10 - Essential (primary) hypertension Prostate Specific Antigen Scr Today Z12.5 - Encounter for screening for malignant neoplasm of prostate Medications: New dexamethasone 1 tab, 3 times a day for 3 days, 1 tab twice a day for 3 days, 1 tab daily for 3 days 4 mg PO DAILY 18 tabs 0RF 9 days
[2025-03-19 13:34] VITALS: BP 124/74
== END 2025-03-19 13:54 | disposition home or self-care (01) ==
LOC: HO.HMCC 12:53
PROVIDERS: PCP Nurse Practitioner Family; Visit Provider Nurse Practitioner Family
DX: M54.16 Radiculopathy, lumbar region (principal); I10 Essential (primary) hypertension; Z12.5 Encounter for screening for malignant neoplasm of prostate

== ENCOUNTER → 2025-03-19 12:52 | Outpatient (BNVA) | payer OTHER, SELFPAY | PROVIDERS: PCP Nurse Practitioner Family; Visit Provider Nurse Practitioner Family | DX: M54.16 Radiculopathy, lumbar region (principal); I10 Essential (primary) hypertension | CPT/HCPCS: 96127; 99212 ==